=== PATIENT | male | born 1960 | race Caucasian/White ===

== ENCOUNTER 2019-04-28 22:12 | Inpatient (IN) | payer OTHER, SELFPAY ==
[2019-04-28 22:15] VITALS: BP 154/91; PULSE 99; RESP 15; TEMP 36.9; O2SAT 96; BMI 33.6
--- NOTE | 2019-04-28 22:34 | DI.CT.S_ITS ---
PROCEDURE: CT ABDOMEN PELVIS W CON INDICATIONS: severe LLQ pain, hx diverti. perf? abscess? TECHNIQUE: After the administration of intravenous contrast, 5 mm thick sections acquired from the diaphragm to the symphysis. 5 mm coronal and sagittal reformats were acquired. For radiation dose reduction, the following was used: automated exposure control, adjustment of mA and/or kV according to patient size. COMPARISON: [facility], CT, ABDOMEN/PELVIS WITH CONTRAST, 12/03/2008, 16:54. FINDINGS: Image quality: Excellent. ABDOMEN: Lung bases: Lung bases are clear. Heart size is normal. Solid organs: Liver is normal in size and enhancement. There is a water density simple appearing anterior left lateral hepatic segment 1.2 cm cyst Gallbladder is normal. Biliary system is non dilated. Pancreas enhances normally. Spleen is normal in size and enhancement. No adrenal nodules. Kidneys demonstrate normal size and enhancement, without hydronephrosis. Peritoneum and bowel: Bowel loops demonstrate normal wall thickness and caliber. No free fluid or air. Nodes and vessels: No retroperitoneal or mesenteric adenopathy by size criteria. Aorta and inferior vena cava are normal in size. Miscellaneous: No ventral hernias. PELVIS: Genitourinary: Bladder wall thickness is normal. Miscellaneous: No inguinal hernias or adenopathy. Diverticulosis is prominent involving the sigmoid colon and there is acute diverticulitis there is moderately severe, without peridiverticular abscess, at the left lower quadrant involving the proximal third of the sigmoid colon with mural thickening. Bones: No suspicious bony lesions. No vertebral body compression fractures. IMPRESSION: Acute moderately severe diverticulitis proximal third of the sigmoid colon at the left lower quadrant, without peridiverticular abscess. Additional diverticulosis is relatively prominent within this portion of the sigmoid colon. No free fluid is found. Elsewhere the study is normal for age. Dictated by: Kit Taylor M.D. on 04/29/2019 at 8:21 Approved by: Kit Taylor M.D. on 04/29/2019 at 8:24
[2019-04-28 22:44] LABS: Add Manual Diff / Slide Review NO; Basophils Absolute Auto 100 /uL (0-100); Basophils Percent Auto 0.8 % (0-2); Eosinophils Absolute Auto 200 /uL (0-450); Eosinophils Percent Auto 1.8 % (2-4); Hematocrit 42.5 % (41-53); Hemoglobin 14.6 g/dL (13.5-17.5); Lymphocytes Absolute Auto 2400 /uL (1100-4500); Lymphocytes Percent Auto 24.3 % (25-40); Mean Corpuscular HGB Conc 34.3 % (30-36); Mean Corpuscular Hemoglobin 29.5 PG (26-34); Mean Corpuscular Volume 85.9 fL (80-100); Monocytes Absolute Auto 1000 /uL (0-900); Neutrophils Absolute Auto 6200 /uL (1500-7000); Neutrophils Percent Auto 63.1 % (50-75); Platelet Count 181 X10^3/uL (150-400); Red Blood Cell Count 4.94 X10^6/uL (4.5-5.9); Red Cell Distribution Width 12.7 % (11.6-14.8); White Blood Cell Count 9.8 X10^3/uL (4.5-11.0)
[2019-04-28] MEDS: SODIUM CHLORIDE 0.9% 1,000 ML 150 ML IV (22:50)
[2019-04-28] MEDS: levoFLOXacin 500 MG/100 ML PIGGYBACK 100 MG IV (22:50)
[2019-04-28] MEDS: ONDANSETRON 4 MG/2 ML INJ IV (22:50)
[2019-04-28 22:51] LABS: Alanine Aminotransferase 46 IU/L (21-72); Albumin 4.7 g/dL (3.5-5.0); Albumin Globulin Ratio 1.6 (1.0-2.8); Alkaline Phosphatase 77 U/L (38-126); Aspartate Aminotransferase 31 IU/L (17-59); BUN Creatinine Ratio 17.5 (6-22); Bilirubin Total 0.6 mg/dL (0.2-1.3); Blood Urea Nitrogen 14 mg/dL (9-20); Calcium 9.6 mg/dL (8.4-10.2); Carbon Dioxide 24 mmol/L (22-32); Chloride 103 mmol/L (98-107); Estimated Glomerular Filt Rate > 60.0 mL/min (>60); Glucose 111 mg/dL (70-100); HEMOLYSIS < 15 (0-50); Lipase 334 U/L (23-300); Potassium 3.9 mmol/L (3.4-5.1); Sodium 137 mmol/L (137-145); Total Protein 7.7 g/dL (6.3-8.2)
[2019-04-28] MEDS: HYDROMORPHONE 1 MG INJ 0.5 MG IV (22:51)
[2019-04-28 23:16] VITALS: BP 143/76; PULSE 85; O2SAT 94
--- NOTE | 2019-04-28 23:16 | ED.ABDPAIN ---
HPI - Abdominal Pain General Chief Complaint: Abdominal Pain Stated Complaint: LOWER ABD PAIN Time Seen by Provider: 04/28/19 22:21 Source: patient and family Mode of arrival: ambulatory Limitations: no limitations History of Present Illness HPI narrative: 58-year-old male nonsmoker with history diverticulitis presents with a chief complaint of severe left lower quadrant pain gradually worsening since noon. He denies fever or shaking chills but has. He states this feels similar to prior episodes of diverticulitis but much worse in terms of the pain. His pain is worse with motion and improves with rest he can feel it all the time. He denies any change in urinary habits. MD complaint: abdominal pain Onset (ago): hour(s) Pain Consistency: constant Location: LLQ Severity: severe Quality: cramping and aching Radiation: none Migration to: no migration Relieving factors: rest Exacerbating factors: movement Context: history of similar episodes Associated symptoms: nausea Related Data Home Medications Medication Instructions Recorded Confirmed No Known Home Medications 04/29/19 04/29/19 Allergies Allergy/AdvReac Type Severity Reaction Status Date / Time No Known Drug Allergies Allergy Verified 04/28/19 22:23 Review of Systems Constitutional Denies chills, Denies fever(s), Denies lethargy and Denies weakness Eyes Denies change in vision, Denies eye discharge, Denies irritation and Denies loss of vision ENT Ears, Nose, Mouth, and Throat: Denies change in voice, Denies neck pain and Denies sore throat Cardiovascular Denies chest pain, Denies irregular heart rhythm, Denies lightheadedness, Denies palpitations, Denies dyspnea, Denies dyspnea on exertion and Denies orthopnea Respiratory Denies cough, Denies dyspnea, Denies dyspnea on exertion and Denies wheezing Gastrointestinal Gastrointestinal: Reports abdominal pain, Denies change in bowel habits, Denies diarrhea, Reports nausea and Denies vomiting Genitourinary Denies hematuria, Denies flank pain, Denies urinary incontinence and Denies urinary urgency Musculoskeletal Denies neck pain Integumentary/Breasts Denies pruritus, Denies erythema, Denies rash and Denies wounds Neurologic Denies confusion, Denies loss of vision and Denies weakness Psychiatric Denies anxiety, Denies confusion, Denies depression, Denies homicidal ideation and Denies suicidal ideation Endocrine Denies palpitations Hematologic/Lymphatic Denies easy bruising Allergic/Immunologic Denies wheezing [facility] Surgical History Status post knee surgery Status post knee surgery Status post knee surgery Family History (Updated 01/11/16 @ 00:00 by Conversion Provider) Brother Age: 65 Heart disease Father Heart disease History of heart bypass surgery Social History Smoking Status: Current every day smoker Family History Brother Age: 65 Heart disease Father Heart disease History of heart bypass surgery Social History household members: spouse Smoking Status: Current every day smoker alcohol intake: current Exam Narrative Exam Narrative: GENERAL: 50-year-old male appears stated age, obviously uncomfortable and rubbing his left lower abdomen HEAD: Atraumatic. Normocephalic. No temporal or scalp tenderness. EYES: Pupils equal round and reactive. Extraocular motions intact. No scleral icterus. No injection or drainage. ENT: Nose without bleeding, purulent drainage or septal hematoma. Throat without erythema, tonsillar hypertrophy or exudate. Uvula midline. Airway patent. NECK: Trachea midline. No JVD or lymphadenopathy. Supple, nontender, no meningeal signs. CARDIOVASCULAR: Regular rate and rhythm without murmurs, gallops, or rubs. RESPIRATORY: Clear to auscultation. Breath sounds equal bilaterally. No wheezes, rales, or rhonchi. GASTROINTESTINAL: Abdomen soft, localized peritonitis. No hepato-splenomegaly, or palpable masses. No guarding. EXTREMITIES: No clubbing, cyanosis, or edema. No joint tenderness, effusion, or edema noted. BACK: Nontender without deformity or crepitance. No flank tenderness. NEURO: AOx3. SKIN: No rash or erythema. Initial Vital Signs Initial Vital Signs: Vital Signs Temperature 98.4 F 04/28/19 22:15 Pulse Rate 99 H 04/28/19 22:15 Respiratory Rate 15 04/28/19 22:15 Blood Pressure 154/91 H 04/28/19 22:15 Pulse Oximetry 96 04/28/19 22:15 Course Orders Ordered: ED Orders 04/28/19 22:33 Complete Blood Count AUTO DIFF Stat Comprehensive Metabolic Panel Stat Lipase Stat 04/28/19 22:34 CT abdomen pelvis w con Stat 04/29/19 Basic Metabolic Panel Routine Complete Blood Count AUTO DIFF Routine GI Panel (Film Array) Routine 04/29/19 01:01 Procalcitonin Stat 04/29/19 01:07 Education, smoking cessation ONGOING 04/29/19 01:13 Consult to Dietitian, Adult Routine 04/29/19 01:14 Consult to Discharge Planning Routine 04/29/19 01:16 Consult to General Surgery Routine Heparin Sodium (Porcine) (Heparin) 5,000 unit SUBCUT BID [facility] Hydromorphone HCl (Dilaudid) 0.5 mg IV Q4HR [facility] Hydromorphone HCl (Dilaudid) 1 mg IV Q4HR [facility] Sodium Chloride (Normal Saline 0.9%) 1,000 mls @ 150 mls/hr IV CONT [facility] Last Infusion: 04/29/19 01:05 Dose: 150 mls/hr Admin: 04/28/19 22:50 Dose: 150 mls/hr Sodium Chloride (Normal Saline 0.9%) 1,000 mls @ 150 mls/hr IV CONT [facility] Naloxone HCl (Narcan) 0.2 mg IV Q2MIN PRN PRN Reason: Opiate Reversal Ondansetron HCl (Zofran) 4 mg IV Q6HR [facility] Pantoprazole Sodium (Protonix) 20 mg IV DAILY [facility] Discontinued Medications Hydromorphone HCl (Dilaudid) 0.5 mg IV NOW ONE Stop: 04/28/19 22:34 Last Admin: 04/28/19 22:51 Dose: 0.5 mg Hydromorphone HCl (Dilaudid) 1 mg IV NOW ONE Stop: 04/29/19 00:10 Last Admin: 04/29/19 00:19 Dose: 1 mg Levofloxacin (Levaquin) 500 mg in 100 mls @ 100 mls/hr IV NOW ONE Stop: 04/28/19 23:32 Last Infusion: 04/29/19 00:14 Dose: 0 mls/hr Admin: 04/28/19 22:50 Dose: 100 mls/hr Metronidazole (Flagyl) 500 mg in 100 mls @ 100 mls/hr IV NOW ONE Stop: 04/29/19 01:08 Last Infusion: 04/29/19 01:05 Dose: 100 mls/hr Admin: 04/29/19 00:19 Dose: 100 mls/hr Ondansetron HCl (Zofran) 4 mg IV NOW ONE Stop: 04/28/19 22:34 Last Admin: 04/28/19 22:50 Dose: 4 mg Vital Signs - 8 hr 04/28/19 22:15 04/28/19 23:16 04/29/19 00:00 Temperature 98.4 F Pulse Rate 99 H 85 77 Respiratory Rate 15 13 Blood Pressure 154/91 H Blood Pressure [Left Arm] 143/76 H 129/73 Pulse Oximetry 96 94 96 04/29/19 01:05 Temperature Pulse Rate 80 Respiratory Rate 16 Blood Pressure Blood Pressure [Left Arm] 119/72 Pulse Oximetry 95 MDM - Abdominal Pain Lab Data Result diagrams: 04/28/19 22:33 04/28/19 22:33 Lab Results 04/28/19 04/28/19 04/28/19 Range/Units 22:33 22:33 22:33 WBC 9.8 (4.5-11.0) X10^3/uL RBC 4.94 (4.5-5.9) X10^6/uL Hgb 14.6 (13.5-17.5) g/dL Hct 42.5 (41-53) % MCV 85.9 (80-100) fL MCH 29.5 (26-34) PG MCHC 34.3 (30-36) % RDW 12.7 (11.6-14.8) % Plt Count 181 (150-400) X10^3/uL Neut % (Auto) 63.1 (50-75) % Lymph % (Auto) 24.3 L (25-40) % [place] % (Auto) 10.0 (3-14) % Eos % (Auto) 1.8 L (2-4) % Baso % (Auto) 0.8 (0-2) % Neut # (Auto) 6200 (1055-5147) /uL Lymph # (Auto) 2400 (4642-3427) /uL [place] # (Auto) 1000 H (0-900) /uL Eos # (Auto) 200 (0-450) /uL Baso # (Auto) 100 (0-100) /uL Sodium 137 (137-145) mmol/L Potassium 3.9 (3.4-5.1) mmol/L Chloride 103 (98-107) mmol/L Carbon Dioxide 24 (22-32) mmol/L BUN 14 (9-20) mg/dL Creatinine 0.80 (0.66-1.25) mg/dL Estimated GFR > 60.0 (>60) mL/min BUN/Creatinine Ratio 17.5 (6-22) Glucose 111 H (70-100) mg/dL Calcium 9.6 (8.4-10.2) mg/dL Total Bilirubin 0.6 (0.2-1.3) mg/dL AST 31 (17-59) IU/L ALT 46 (21-72) IU/L Alkaline Phosphatase 77 (38-126) U/L Total Protein 7.7 (6.3-8.2) g/dL Albumin 4.7 (3.5-5.0) g/dL Globulin 3.0 (1.7-4.1) g/dL Albumin/Globulin Ratio 1.6 (1.0-2.8) Lipase 334 H (23-300) U/L Procalcitonin < 0.05 (<0.5) ng/mL Imaging Data CT scan - abdomen: Radiologist's impression: colitis vs. diverticulitis without abscess or perforation. Possible early phlegmon MDM Narrative Medical decision making narrative: 58-year-old male with history of diverticulitis presents with pain that reminds him of diverticulitis but is much more severe. He has localized peritonitis on exam and trouble controlling his pain with multiple doses of IV Dilaudid. CT demonstrates no perforation but possible early phlegmon. General surgery consulted but given lack of surgical findings they requested admission to the hospitalist. Patient requires admission for ongoing IV antibiotics, pain control and fluids with serial abdominal exams Discharge Plan Departure Patient Disposition: Admitted As Inpatient Clinical Impression: Diverticulitis Interventions: ED Discharge Assessment Last Done: 04/29/19 01:15 Admit Date/Time: 04/29/19 00:17 Admit Provider: Elton Pantoja
[2019-04-29] VITALS (8 sets, daily range): BP systolic 119–147; BP diastolic 69–90; PULSE 77–86; RESP 13–20; TEMP 36.6–37; O2SAT 92–96; BMI 33.6
--- NOTE | 2019-04-29 00:05 | PC.NURSE ---
Dr. Hightower at bedside.
[2019-04-29] MEDS: HYDROMORPHONE 1 MG INJ IV ×6 (00:19→20:58)
[2019-04-29] MEDS: metroNIDAZOLE 500 MG/100 ML PIGGYBACK 100 MG IV ×4 (00:19→23:34)
[2019-04-29 01:34] LABS: Procalcitonin < 0.05 ng/mL (<0.5)
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
[2019-04-29] MEDS: SODIUM CHLORIDE 0.9% 1,000 ML 150 ML IV ×4 (01:50→20:24)
--- NOTE | 2019-04-29 01:52 | PC.NURSE ---
0130- Pt admit directly from ED for abdominal pain in the LUQ--severe 09/03. See MD notes for results of abdom scan; NPO diet at this time; NS running as ordered. Pt is independent at baseline however, with severe abdominal pain a bed alarm has been placed for safety reasons. IV Dilaudid given for pain downstairs, pt says this didn't help w/ lowering the pain level. Cont SpO2 in place w/ stable sats on RA; urine sample collected via urinal.
[2019-04-29] MEDS: methylPREDNISolone 125 MG/2 ML VIAL 80 MG IV ×2 (04:39→12:11)
[2019-04-29 05:31] LABS: Add Manual Diff / Slide Review NO; Basophils Absolute Auto 0 /uL (0-100); Basophils Percent Auto 0.5 % (0-2); Eosinophils Absolute Auto 100 /uL (0-450); Eosinophils Percent Auto 1.1 % (2-4); Hematocrit 41.2 % (41-53); Hemoglobin 14.3 g/dL (13.5-17.5); Lymphocytes Absolute Auto 1900 /uL (1100-4500); Lymphocytes Percent Auto 18.9 % (25-40); Mean Corpuscular HGB Conc 34.6 % (30-36); Mean Corpuscular Volume 86.6 fL (80-100); Monocytes Absolute Auto 1000 /uL (0-900); Neutrophils Absolute Auto 6800 /uL (1500-7000); Neutrophils Percent Auto 69.5 % (50-75); Platelet Count 168 X10^3/uL (150-400); Red Blood Cell Count 4.76 X10^6/uL (4.5-5.9); Red Cell Distribution Width 12.8 % (11.6-14.8); White Blood Cell Count 9.8 X10^3/uL (4.5-11.0)
[2019-04-29 05:41] LABS: Blood Urea Nitrogen 12 mg/dL (9-20); Calcium 9.3 mg/dL (8.4-10.2); Carbon Dioxide 29 mmol/L (22-32); Chloride 101 mmol/L (98-107); Estimated Glomerular Filt Rate > 60.0 mL/min (>60); Glucose 154 mg/dL (70-100); HEMOLYSIS < 15 (0-50); Potassium 4.9 mmol/L (3.4-5.1); Sodium 137 mmol/L (137-145)
[2019-04-29 05:57] LABS: Procalcitonin < 0.05 ng/mL (<0.5)
[2019-04-29] MEDS: PANTOPRAZOLE 40 MG VIAL 20 MG IV (08:24)
[2019-04-29] MEDS: HEPARIN 5,000 UNIT/ML VIAL 5000 UNIT SUBCUT ×2 (08:24→20:26)
--- NOTE | 2019-04-29 17:33 | PM.EVENT ---
Date Patient Seen: 04/29/19 Patient seen and evaluated chart reviewed. He reports his abdominal pain has improved. He does continue to have 3/5 pain when at rest which gets worse with movement. He has no appetite. He has had no diarrhea. He has had no vomiting. Review of the final report of the CT confirms diverticulitis. The patient will continue on IV levofloxacin and Flagyl. His methylprednisolone will be discontinued. Will start a clear liquid diet tomorrow.
[2019-04-29] MEDS: levoFLOXacin 750 MG/150 ML PIGGYBACK 100 MG IV (22:32)
--- NOTE | 2019-04-29 23:16 | PC.NURSE ---
pain 3/10 without movement, 8/10 with movement. pain controlled with 1mg IV dilaudid. pt passed gas. call light in reach.
[2019-04-30] VITALS: BP 134/76; PULSE 87; RESP 18; TEMP 36.7; O2SAT 93
[2019-04-30] MEDS: ONDANSETRON 4 MG/2 ML INJ IV (00:47)
[2019-04-30] MEDS: SODIUM CHLORIDE 0.9% 1,000 ML 150 ML IV ×2 (03:10→10:30)
[2019-04-30 04:00] VITALS: BP 121/77; PULSE 71; RESP 18; TEMP 36.3; O2SAT 93
[2019-04-30 05:43] LABS: Add Manual Diff / Slide Review NO; Basophils Absolute Auto 0 /uL (0-100); Basophils Percent Auto 0.2 % (0-2); Eosinophils Absolute Auto 0 /uL (0-450); Hemoglobin 13.3 g/dL (13.5-17.5); Lymphocytes Absolute Auto 1000 /uL (1100-4500); Mean Corpuscular HGB Conc 34.1 % (30-36); Mean Corpuscular Hemoglobin 29.3 PG (26-34); Monocytes Absolute Auto 1000 /uL (0-900); Monocytes Percent Auto 8.5 % (3-14); Neutrophils Absolute Auto 9400 /uL (1500-7000); Neutrophils Percent Auto 82.3 % (50-75); Platelet Count 176 X10^3/uL (150-400); Red Blood Cell Count 4.54 X10^6/uL (4.5-5.9); Red Cell Distribution Width 12.8 % (11.6-14.8); White Blood Cell Count 11.4 X10^3/uL (4.5-11.0)
[2019-04-30 05:53] LABS: Alanine Aminotransferase 39 IU/L (21-72); Albumin Globulin Ratio 1.4 (1.0-2.8); Alkaline Phosphatase 69 U/L (38-126); Aspartate Aminotransferase 20 IU/L (17-59); BUN Creatinine Ratio 17.1 (6-22); Bilirubin Total 0.6 mg/dL (0.2-1.3); Blood Urea Nitrogen 12 mg/dL (9-20); Calcium 9.1 mg/dL (8.4-10.2); Carbon Dioxide 28 mmol/L (22-32); Chloride 104 mmol/L (98-107); Estimated Glomerular Filt Rate > 60.0 mL/min (>60); Globulin 2.8 g/dL (1.7-4.1); Glucose 135 mg/dL (70-100); HEMOLYSIS < 15 (0-50); Sodium 138 mmol/L (137-145); Total Protein 6.8 g/dL (6.3-8.2)
[2019-04-30 07:50] VITALS: BP 133/76; PULSE 73; RESP 20; TEMP 37; O2SAT 94
[2019-04-30] MEDS: metroNIDAZOLE 500 MG/100 ML PIGGYBACK 100 MG IV ×2 (07:51→16:35)
[2019-04-30] MEDS: HEPARIN 5,000 UNIT/ML VIAL 5000 UNIT SUBCUT ×2 (08:40→22:29)
[2019-04-30] MEDS: PANTOPRAZOLE 40 MG VIAL 20 MG IV (08:50)
[2019-04-30] MEDS: DEXTROSE 5%-0.45NS W/KCL 20MEQ 1,000 ML 84 MEQ IV (11:27)
[2019-04-30 11:55] VITALS: BP 135/82; PULSE 79; RESP 18; TEMP 36.9; O2SAT 96
--- NOTE | 2019-04-30 12:07 | P.PN_ITS ---
Subjective Date Patient Seen: 04/30/19 Interval history: Patient reports abdominal pain has improved. He notes the pain is 2 to 5/10 in intensity when lying flat. When he moves the pain is worse. He had some nausea last night, but no diarrhea, no vomiting. He is ready to try some liquid and advance his diet as tolerated today. Exam Vital Signs (past 8 hours): - 04/30/19 07:50 Temperature 98.6 F Pulse Rate 73 Respiratory Rate 20 Blood Pressure 133/76 Pulse Oximetry 94 Oxygen Delivery Method Room Air Oxygen Flow Rate 0 Narrative Exam Narrative: Pleasant ill-appearing male Lungs: Clear to auscultation Cardiac exam: Regular rate rhythm normal S1-S2 Abdomen: Soft, hypoactive bowel tones, tender in the left lower quad in lower mid abdominal, no rebound tenderness, no board-like rigidity, no palpable mass Extremities: No edema Objective Labs Result Diagrams: 04/30/19 05:18 04/30/19 05:18 Labs: Laboratory Results - last 24 hr 04/30/19 04/30/19 05:18 05:18 WBC 11.4 H RBC 4.54 Hgb 13.3 L Hct 39.0 L MCV 86.0 MCH 29.3 MCHC 34.1 RDW 12.8 Plt Count 176 Neut % (Auto) 82.3 H Lymph % (Auto) 9.0 L [place] % (Auto) 8.5 Eos % (Auto) 0.0 L Baso % (Auto) 0.2 Neut # (Auto) 9400 H Lymph # (Auto) 1000 L [place] # (Auto) 1000 H Eos # (Auto) 0 Baso # (Auto) 0 Sodium 138 Potassium 4.0 Chloride 104 Carbon Dioxide 28 BUN 12 Creatinine 0.70 Estimated GFR > 60.0 BUN/Creatinine Ratio 17.1 Glucose 135 H Calcium 9.1 Total Bilirubin 0.6 AST 20 ALT 39 Alkaline Phosphatase 69 Total Protein 6.8 Albumin 4.0 Globulin 2.8 Albumin/Globulin Ratio 1.4 Assessment & Plan (1) Diverticulitis: Problem details: Acute diverticulitis, present on admission abdominal pain improving. Will continue IV levofloxacin and Flagyl. Will advance diet as tolerated today. Anticipate discharge home in 1-2 day Current visit: Yes Status: Acute Quality VTE Deep Vein Thrombosis/Pulmonary Embolism Present on Admission: No
--- NOTE | 2019-04-30 12:36 | DIET.PN ---
RD consult for no appetite r/t diverticulitis Ht: 185.4cm Wt: 112kg BMI: 32.6 MNA 14 (no nutritional risk) Luis Angel 23 Diet order: 04/30 Clear Liquid Pt denies n/v/d/b symptoms, denies wt changes prior to admission, has been experiencing added stress r/t house remodel. Usual diet: B- no food, just coffee at 4am; L- goes out c coworkers for greenlandic, zambian, BBQ, pizza; D-goes out c family; sn-ice cream, candy bars, fresh fruits, whole grain bread; Fl-drinks gallon h2o/d Vomited water last night when clear diet initiated, back to NPO, slowly trying clears again today, pt has lunch tray (broth, jello, apple juice) Intervention: Recc Ensure Clear BID to support epithelial healing, stressed importance of going slow even though he is hungry. Plan: Continue clear diet until px, inflammation, and risk for bleeding subsides, then move to low-residue diet followed by slowing incorporating high fiber/high fluid diet reccs. RD will educate pt on low-residue and high fiber diet plans for discharge.
--- NOTE | 2019-04-30 16:44 | CM.DANOTE ---
Discharge Planning/Care Management DCP: assessment: initiated: Case received and discussed in Team Rounds. Pt is a 58 year old male who admitted yesterday to care of hospitalist team. Dr. Benjamin consulted. Payer: Efren Carroll PCP: Renée Collins reported that dx was acute diverticulitis and was appropriate for medical management. She notes this afternoon that he is improving and will likely be ok for d/c to home setting is he continues to improve in next day or 2. He lives with his in [place]. P: follow prn for any d/c needs that may arise. Likely home as per above when stable for same. CM Discharge Assessment Start: 04/30/19 16:43 Freq: Status: Active Protocol: Document 04/30/19 16:43 ITV (Rec: 04/30/19 16:43 ITV [id number]) Discharge Planning Assessment Advance Directives? No Advance Directives on File No History Provided By Medical Record Prior Living Arrangements House Household Members spouse Independent with ADL's Yes Is patient alert and oriented? Yes Document 04/30/19 16:44 ITV (Rec: 04/30/19 16:44 ITV [id number]) Discharge Planning Assessment Advance Directives? No Advance Directives on File No History Provided By Medical Record Prior Living Arrangements House Household Members spouse Is patient alert and oriented? Yes
[2019-04-30 20:01] VITALS: BP 129/90; PULSE 75; RESP 17; TEMP 36.8; O2SAT 96
[2019-04-30] MEDS: levoFLOXacin 750 MG/150 ML PIGGYBACK 100 MG IV (22:29)
[2019-04-30 23:00] VITALS: BP 143/79; PULSE 70; RESP 16; TEMP 37.2; O2SAT 96
[2019-05-01] MEDS: metroNIDAZOLE 500 MG/100 ML PIGGYBACK 100 MG IV ×3 (00:22→16:49)
[2019-05-01] MEDS: DEXTROSE 5%-0.45NS W/KCL 20MEQ 1,000 ML 84 MEQ IV ×2 (03:29→16:49)
[2019-05-01 04:51] VITALS: BP 143/76; PULSE 63; RESP 16; TEMP 36.7; O2SAT 100
--- NOTE | 2019-05-01 05:50 | PC.NURSE ---
Denies any nausea & abdominal pain all shift. Reports passing some gas, slept most of the shift. Will cont. POC & monitor.
[2019-05-01 08:00] VITALS: BP 132/82; PULSE 63; RESP 18; O2SAT 98
[2019-05-01 08:30] VITALS: TEMP 36.8
--- NOTE | 2019-05-01 08:55 | PM.PN.1 ---
Subjective Date Patient Seen: 05/01/19 Time Patient Seen: 08:55 Interval history: He is seen today to follow-up his sigmoid diverticulitis. He says he has begun tolerating the clear liquid diet, after initially vomiting with the his 1st intake the day before yesterday. Exam Vital Signs (past 8 hours): - 05/01/19 04:51 05/01/19 08:00 05/01/19 08:30 Temperature 98.1 F 98.2 F Pulse Rate 63 63 Respiratory Rate 16 18 Blood Pressure 143/76 H 132/82 Pulse Oximetry 100 98 Oxygen Delivery Method Room Air Oxygen Flow Rate 0 Narrative Exam Narrative: Alert and oriented x3. No apparent distress. Heart is regular rate and rhythm without murmur. Lungs are clear to auscultation bilaterally. Abdomen is soft, bowel sounds positive, no organomegaly, with exquisite tenderness present in the left lower quadrant. Extremities have no ankle edema. Objective Labs Result Diagrams: 04/30/19 05:18 04/30/19 05:18 Assessment & Plan Assessment & Plan narrative: Diverticulitis -repeat CT today. Discussed with General surgery. -continue IV Flagyl and levofloxacin -anticipate discharge home on oral antibiotics in 1-2 days. Quality VTE Deep Vein Thrombosis/Pulmonary Embolism Present on Admission: No
--- NOTE | 2019-05-01 09:34 | DI.CT.S_ITS ---
PROCEDURE: CT ABDOMEN PELVIS W CON INDICATIONS: Diverticulitis TECHNIQUE: After the administration of oral and intravenous contrast, 5 mm thick sections acquired from the diaphragms to the symphysis. 5 mm thick coronal and sagittal reformats were performed. For radiation dose reduction, the following was used: automated exposure control, adjustment of mA and/or kV according to patient size. COMPARISON: [facility], CT, CT ABDOMEN PELVIS W CON, 04/28/2019, 22:59. [facility], CT, ABDOMEN/PELVIS WITH CONTRAST, 12/03/2008, 16:54. FINDINGS: Image quality: Excellent. ABDOMEN: Lung bases: Along the left oblique fissure laterally, there is a nodule seen that measures 17 x 10 mm. Calcification is seen associated with this nodule, as on series 2 images 4 and 5. This is off of the [id number] of the prior CT examinations. Mild dependent atelectasis can be seen. Heart size is normal. Solid organs: Liver is normal in size and enhancement. There is a 13 mm nonenhancing cyst is seen involving the anterior aspect of the left liver. Incidental note is made of focal fatty infiltration adjacent to the falciform ligament, which is not regarded to be pathologic. Gallbladder wall is not thickened. Biliary system is non-dilated. Pancreas enhances normally. Spleen is normal in size and enhancement. No adrenal nodules. Kidneys are normal in size and enhancement, without hydronephrosis. Peritoneum and bowel: There is again seen focal wall thickening with surrounding inflammatory change involving the proximal sigmoid colon. The amount of wall thickening and inflammatory change is improved compared to the prior examination. Prominent diverticulosis is seen within this region. No free air is detected. No loculated fluid collections are seen. No other areas of focal bowel wall thickening are seen. No dilated loops of small bowel are seen. Nodes and vessels: No retroperitoneal or mesenteric adenopathy. Aorta and inferior vena cava are normal in caliber. Miscellaneous: No ventral hernias. PELVIS: Genitourinary: Bladder wall thickness is normal. Miscellaneous: No inguinal adenopathy. Bilateral fat containing inguinal hernias are seen. Bones: No suspicious bony lesions. No vertebral body compression fractures. IMPRESSION: Improving sigmoid diverticulitis. No abscess is seen. There is a 17 mm nodule seen along the left oblique fissure laterally. Differential diagnosis includes neoplasm and prior granulomatous exposure. Please consider a dedicated PET/CT for further evaluation. Incidental note is made of: Liver cyst Bilateral fat containing inguinal hernias Note: Findings and recommendations relayed to Dr. Polanco via office staff, Mellissa, at 10:45 AM [place] time on May 01, 2019. Dr. Polanco will call back if there are any questions. Dictated by: Jose G Kenny M.D. on 05/01/2019 at 9:34 Approved by: Jose G Kenny M.D. on 05/01/2019 at 9:47
--- NOTE | 2019-05-01 09:47 | PC.NURSE ---
Addendum entered by Elena Ugalde R.N. 05/01/19 10:41: pt left floor for abd CT at 0945 and saline locked. Arrived back to room at 1010, fluids infusing and pt resting in bed. Declined breakfast and will ask for a snack if needed. Original Note: AM Shift pt AO and receptive to care. Reporting feeling tired due to lack of sleep and fighting acid reflux, but feels steady on his feet and denying lightheadedness/dizziness. Reporting 3/10 abdominal pain. No nausea currently, however previous shifts have reported nausea and vomiting. Urgent order for abdominal CT scan so pt held clear breakfast to drink prep. VS stable. Infusing D5 1/2 NS with 20meq K at 84/hr. Up IND in room and voiding ample. Bowel tones hypoactive and pt states he isn't passing a lot of gas.
[2019-05-01] MEDS: HEPARIN 5,000 UNIT/ML VIAL 5000 UNIT SUBCUT ×2 (10:13→21:24)
--- NOTE | 2019-05-01 11:50 | DIET.PN ---
RD f/u diverticulitis Ht: 185.4cm Wt: 112kg BMI: 32.6 MNA 14 (no nutritional risk) Luis Angel 23 Diet order: 04/30 Clear Liquid Pt denies n/v/d/b symptoms, tolerating clears. Intervention: RD educated pt on continuing low-residue diet for one week post discharge followed by incorporating higher fiber foods as tolerated c eventual goal of high fiber/high fluid diet. Gave pt low-residue diet and high-fiber diet handouts. Pt states will follow reccs. Plan: Recc advance to low-residue diet as appropriate, consider starting c mashed potatoes c broth or cream of wheat.
[2019-05-01 12:20] VITALS: BP 149/84; PULSE 68; RESP 18; TEMP 36.7; O2SAT 96
--- NOTE | 2019-05-01 14:35 | PC.NURSE ---
Stool sample Hospitalist ordered stool sample on 04/29. pt has yet to have a BM. KNIFEMAN made aware of order and specimen container in [place].
[2019-05-01 19:48] VITALS: BP 146/87; PULSE 77; RESP 16; TEMP 37.1; O2SAT 96
[2019-05-01] MEDS: levoFLOXacin 750 MG/150 ML PIGGYBACK 100 MG IV (23:07)
[2019-05-01 23:35] VITALS: BP 150/87; PULSE 69; RESP 16; TEMP 36.5; O2SAT 98
[2019-05-02] MEDS: metroNIDAZOLE 500 MG/100 ML PIGGYBACK 100 MG IV ×2 (00:32→07:32)
[2019-05-02 03:20] VITALS: BP 133/77; PULSE 69; RESP 16; TEMP 36.6; O2SAT 96
[2019-05-02] MEDS: DEXTROSE 5%-0.45NS W/KCL 20MEQ 1,000 ML 84 MEQ IV (07:32)
[2019-05-02 08:00] VITALS: BP 132/74; PULSE 60; RESP 18; TEMP 36.6; O2SAT 97
--- NOTE | 2019-05-02 08:25 | PC.NURSE ---
Addendum entered by Yaar Singh R.N. 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 Addendum entered by Yara Singh R.N. 05/02/19 11:45: GI - assisted to shower, pt had med-large softly formed brown stool. Addendum entered by Yara Singh R.N. 05/02/19 11:45: GI - pt miguel angel gen breakfast diet this am, denies nausea or abd pain. Original Note: AM NOTE - alert, denies pain, states only occassional abd discomfort, no nausea, hypo bt, greater l than r, ra 96%, hr 62, in this am and pt will adv to gen diet for breakfast. Per MD, no laxatives will be needed as expect bowel function to return w/o stimulus.
[2019-05-02 08:34] LABS: Add Manual Diff / Slide Review NO; Basophils Absolute Auto 0 /uL (0-100); Basophils Percent Auto 0.4 % (0-2); Eosinophils Absolute Auto 100 /uL (0-450); Eosinophils Percent Auto 1.9 % (2-4); Hematocrit 44.7 % (41-53); Hemoglobin 15.2 g/dL (13.5-17.5); Lymphocytes Absolute Auto 1700 /uL (1100-4500); Lymphocytes Percent Auto 30.7 % (25-40); Mean Corpuscular HGB Conc 33.9 % (30-36); Mean Corpuscular Hemoglobin 29.2 PG (26-34); Mean Corpuscular Volume 86.1 fL (80-100); Monocytes Absolute Auto 600 /uL (0-900); Monocytes Percent Auto 10.4 % (3-14); Neutrophils Absolute Auto 3200 /uL (1500-7000); Neutrophils Percent Auto 56.6 % (50-75); Platelet Count 201 X10^3/uL (150-400); Red Blood Cell Count 5.19 X10^6/uL (4.5-5.9); Red Cell Distribution Width 12.4 % (11.6-14.8); White Blood Cell Count 5.6 X10^3/uL (4.5-11.0)
[2019-05-02 08:43] LABS: Blood Urea Nitrogen 12 mg/dL (9-20); Calcium 9.7 mg/dL (8.4-10.2); Carbon Dioxide 31 mmol/L (22-32); Chloride 102 mmol/L (98-107); Estimated Glomerular Filt Rate > 60.0 mL/min (>60); Glucose 132 mg/dL (70-100); HEMOLYSIS < 15 (0-50); Potassium 4.9 mmol/L (3.4-5.1); Sodium 140 mmol/L (137-145)
[2019-05-02] MEDS: HEPARIN 5,000 UNIT/ML VIAL 5000 UNIT SUBCUT (09:36)
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
--- NOTE | 2019-05-03 12:56 | CM.DPC ---
DCP: continued: late entry for 05/02. Case received again yesterday and discussed in Team Rounds. Reviewed hand off note from John Land for 05/01: plan was for a d/c to home on Sunday 04/01 and no d/c needs identified. Pt did d/c to home as planned.
== END 2019-05-02 14:10 | disposition home or self-care (01) | DRG 392 ==
LOC: ED 22:21 → AC 04-29 00:18
PROVIDERS: Internal Medicine; Admitting Provider Nurse Practitioner Adult Health; Emergency Provider Emergency Medicine; Family Provider Family Medicine; PCP Family Medicine; Visit Provider Nurse Practitioner Adult Health
DX: K57.32 Diverticulitis of large intestine without perforation or abscess without bleeding (principal); F17.210 Nicotine dependence, cigarettes, uncomplicated
CPT/HCPCS: 36415; 36591; 74177; 80048; 80053; 83690; 84145; 85025; 94762; 96365; 96366; 96367; 96375; 96376; 99283; 99285; 99406; C9113; J1170; J1644; J1956; J2405; J2930; Q9967

== ENCOUNTER 2019-12-14 10:41 | Emergency (ER) | payer OTHER, SELFPAY ==
[2019-04-29 01:26] VITALS: BMI 33.6
--- NOTE | 2019-12-14 10:52 | ED_ITS ---
HPI - Abdominal Pain General Chief Complaint: Abdominal Pain Stated Complaint: possible pancreatitis attack a lot of pain Time Seen by Provider: 12/14/19 10:51 Source: patient and old records reviewed Mode of arrival: Ambulatory Limitations: no limitations History of Present Illness HPI narrative: This is a 59-year-old male comes to the emergency department with complaint of right lower abdominal pain. Patient states it started suddenly about 45 minutes just prior to arrival. He states it does not radiate to his back, does not have any pain in his flank. He states he is feeling sweaty particularly but started. He does feel nauseated. He has not vomited. Had normal bowel movement and urination this morning. His last urination was at 9:30 a.m.. He has not had any syncope. He does not feel lightheaded. Patient denies any radiation of pain elsewhere. He has not had similar pain in the past. Does have a history of diverticulitis denies any other past medical issues, he has had knee and elbow surgery. He denies allergies to medication. Smokes 1 or 2 cigarettes daily, denies alcohol or illicit. He follows with Renée Ibrahim is his primary care. Related Data Previous Rx's Medication Instructions Recorded meloxicam [Mobic] 7.5 mg PO BID #14 tab 12/14/19 ondansetron HCl [Zofran] 4 mg PO Q6H PRN #10 tab 12/14/19 oxycodone-acetaminophen [Percocet] 1 tab PO Q6H PRN #10 tab 12/14/19 tamsulosin [Flomax] 0.4 mg PO DAILY #7 cap 12/14/19 Allergies Allergy/AdvReac Type Severity Reaction Status Date / Time No Known Drug Allergies Allergy Verified 05/06/19 10:54 Review of Systems Review of Systems ROS Unobtainable: All systems reviewed & are unremarkable except as noted in HPI and below Constitutional Constitutional: Denies chills, Reports excessive sweating and Denies fever(s) Cardiovascular Cardiovascular: Denies chest pain and Denies dyspnea Respiratory Respiratory: Denies dyspnea Endocrine Endocrine: Reports excessive sweating Patient History Medical History Cervical pain (Acute) Diverticulosis (Acute) Low back pain (Acute) Surgical History Status post knee surgery Status post knee surgery Status post knee surgery Social History household members: spouse Smoking Status: Current every day smoker alcohol intake: current Smoking Status: Current every day smoker alcohol intake frequency: holidays/special occasions only Substance Use Type: does not use Exam Narrative Exam Narrative: GENERAL: Alert and oriented x three, well-nourished, well- appearing male in moderate distress HEENT: Head normocephalic, atraumatic, EOMI, pupils reactive, face symmetric, moist mucous membranes NECK: Supple, full range of motion CARDIOVASCULAR: Regular rate and rhythm without murmurs, rubs or gallops. RESPIRATORY: Breath sounds equal bilaterally, no wheezes rales or rhonchi. ABDOMEN: Soft, positive right lower quadrant tenderness but only mildly worsened with palpation. Normoactive bowel sounds all 4 quadrants. No guarding or rebound, rigidity, no mass. No hernia noted. : No CVA tenderness EXTREMITIES: Normal range of motion, no clubbing or edema. Neurovascularly intact NEUROLOGICAL: Cranial nerves II through XII grossly intact. Moving all extremities SKIN: Warm, dry, no petechiae, no rashes or lesions. No ecchymosis or skin changes. Initial Vital Signs Initial Vital Signs: Vital Signs Temperature 98.0 F 12/14/19 10:53 Pulse Rate 77 12/14/19 10:53 Respiratory Rate 18 12/14/19 10:53 Blood Pressure 141/68 H 12/14/19 10:53 Pulse Oximetry 100 12/14/19 10:53 Course Orders Ordered: ED Orders 12/14/19 10:55 EKG-12 Lead Stat 12/14/19 11:04 Complete Blood Count AUTO DIFF Stat Comprehensive Metabolic Panel Stat Lipase Stat Partial Thromboplastin Time Stat Prothrombin Time INR Stat 12/14/19 11:07 CT abdomen pelvis w con Stat 12/14/19 12:05 Urine Culture Stat Urine Microscopic Stat Discontinued Medications Sodium Chloride (Normal Saline 0.9%) 1,000 mls @ 1,000 mls/hr IV BOLUS ONE Stop: 12/14/19 12:05 Last Infusion: 12/14/19 12:41 Dose: 0 mls/hr Documented by: Admin: 12/14/19 11:11 Dose: 1,000 mls/hr Documented by: NEELAM Lidocaine HCl 7.8 ml/ Sodium (Chloride) 57.8 mls @ 346.8 mls/hr IV NOW ONE Stop: 12/14/19 11:45 Last Infusion: 12/14/19 12:16 Dose: 0 mls/hr Documented by: Admin: 12/14/19 12:05 Dose: 346.8 mls/hr Documented by: WILLIAN Ketorolac Tromethamine (Toradol) 30 mg IV NOW ONE Stop: 12/14/19 11:07 Last Admin: 12/14/19 11:11 Dose: 30 mg Documented by: NEELAM Metoclopramide HCl (Reglan) 10 mg IV NOW ONE Stop: 12/14/19 12:08 Last Admin: 12/14/19 12:10 Dose: 10 mg Documented by: WILLIAN Ondansetron HCl (Zofran) 4 mg IV NOW ONE Stop: 12/14/19 11:07 Last Admin: 12/14/19 11:12 Dose: 4 mg Documented by: NEELAM Tamsulosin HCl (Flomax) 0.4 mg PO NOW ONE Stop: 12/14/19 13:15 Last Admin: 12/14/19 13:28 Dose: 0.4 mg Documented by: WILLIAN Vital Signs Vital signs: Vital Signs - 8 hr 12/14/19 10:53 12/14/19 12:00 Temperature 98.0 F Pulse Rate 77 74 Respiratory Rate 18 12 Blood Pressure 141/68 H Pulse Oximetry 100 98 MDM - Abdominal Pain Lab Data Attestation: I reviewed the patient's lab results. Result diagrams: 12/14/19 11:04 12/14/19 11:04 Labs: Lab Results 12/14/19 12/14/19 12/14/19 Range/Units 11:04 11:04 11:04 WBC 7.2 (4.5-11.0) X10^3/uL RBC 4.92 (4.5-5.9) X10^6/uL Hgb 14.8 (13.5-17.5) g/dL Hct 42.3 (41-53) % MCV 85.9 (80-100) fL MCH 30.1 (26-34) PG MCHC 35.0 (30-36) % RDW 12.8 (11.6-14.8) % Plt Count 174 (150-400) X10^3/uL Neut % (Auto) 55.7 (50-75) % Lymph % (Auto) 34.5 (25-40) % [place] % (Auto) 7.8 (3-14) % Eos % (Auto) 1.4 L (2-4) % Baso % (Auto) 0.6 (0-2) % Neut # (Auto) 4000 (4985-8510) /uL Lymph # (Auto) 2500 (1455-0287) /uL [place] # (Auto) 600 (0-900) /uL Eos # (Auto) 100 (0-450) /uL Baso # (Auto) 0 (0-100) /uL PT 11.4 (10.1-12.7) SECONDS INR 1.0 (0.9-1.3) APTT 27 (26.4-36.2) SECONDS Sodium 136 L (137-145) mmol/L Potassium 4.2 (3.4-5.1) mmol/L Chloride 103 (98-107) mmol/L Carbon Dioxide 21 L (22-32) mmol/L BUN 15 (9-20) mg/dL Creatinine 0.80 (0.66-1.25) mg/dL Estimated GFR > 60.0 (>60) mL/min BUN/Creatinine Ratio 18.8 (6-22) Glucose 144 H (70-100) mg/dL Calcium 9.9 (8.4-10.2) mg/dL Total Bilirubin 0.9 (0.2-1.3) mg/dL AST 37 (17-59) IU/L ALT 35 (<50) IU/L Alkaline Phosphatase 62 (38-126) U/L Total Protein 8.1 (6.3-8.2) g/dL Albumin 4.8 (3.5-5.0) g/dL Globulin 3.3 (1.7-4.1) g/dL Albumin/Globulin Ratio 1.5 (1.0-2.8) Lipase 130 (23-300) U/L Urine RBC (0-5/HPF) Urine WBC (0-5/HPF) Ur Squamous Epith Cells (0-5/HPF) Amorphous Sediment Urine Bacteria (None) Urine Mucus (Negative) Ur Culture Indicated? 12/14/19 Range/Units 12:05 WBC (4.5-11.0) X10^3/uL RBC (4.5-5.9) X10^6/uL Hgb (13.5-17.5) g/dL Hct (41-53) % MCV (80-100) fL MCH (26-34) PG MCHC (30-36) % RDW (11.6-14.8) % Plt Count (150-400) X10^3/uL Neut % (Auto) (50-75) % Lymph % (Auto) (25-40) % [place] % (Auto) (3-14) % Eos % (Auto) (2-4) % Baso % (Auto) (0-2) % Neut # (Auto) (9424-3940) /uL Lymph # (Auto) (9007-3649) /uL [place] # (Auto) (0-900) /uL Eos # (Auto) (0-450) /uL Baso # (Auto) (0-100) /uL PT (10.1-12.7) SECONDS INR (0.9-1.3) APTT (26.4-36.2) SECONDS Sodium (137-145) mmol/L Potassium (3.4-5.1) mmol/L Chloride (98-107) mmol/L Carbon Dioxide (22-32) mmol/L BUN (9-20) mg/dL Creatinine (0.66-1.25) mg/dL Estimated GFR (>60) mL/min BUN/Creatinine Ratio (6-22) Glucose (70-100) mg/dL Calcium (8.4-10.2) mg/dL Total Bilirubin (0.2-1.3) mg/dL AST (17-59) IU/L ALT (<50) IU/L Alkaline Phosphatase (38-126) U/L Total Protein (6.3-8.2) g/dL Albumin (3.5-5.0) g/dL Globulin (1.7-4.1) g/dL Albumin/Globulin Ratio (1.0-2.8) Lipase (23-300) U/L Urine RBC 30-100/hpf H (0-5/HPF) Urine WBC 10-30/hpf H (0-5/HPF) Ur Squamous Epith Cells 0-1 /hpf (0-5/HPF) Amorphous Sediment 1+ Urine Bacteria Occasional (0-1) (None) Urine Mucus 2+ H (Negative) Ur Culture Indicated? Specimen cultured Point of care testing: Urine Dip Bedside Urine Glucose Negative Bedside Urine Bilirubin - Negative Bedside Urine Ketone ++ 40 Urine Specific [place] 1.020 Bedside Urine Occult Blood +++ Bedside Urine pH 6.0 Bedside Urine Protein +/- 15 Bedside Urine Urobilinogen - Negative Bedside Urine Nitrite - Negative Bedside Urine Leukocytes + [address] scan - abdomen/pelvis: Radiologist's Impression: Matthew Gonzalez 59 M [address] [address] [address] Scan Report Signed Patient: Matthew Gonzalez AMR#: [id number] : 1960Acct:[id number] Age/Sex: 59 / MDate of Service: 12/14/19 Loc: ED Accession Number: [id number] Procedure: CT abdomen pelvis w con Ordering Provider: Cristina Rajput D.O. PROCEDURE: CT ABDOMEN PELVIS W CON INDICATIONS: RIGHT UPPER pain X 3 HOURS, stone vs appy, vs right sided diverticulitis TECHNIQUE: After the administration of intravenous contrast, 5 mm thick sections acquired from the diaphragm to the symphysis. 5 mm coronal and sagittal reformats were acquired. For radiation dose reduction, the following was used: automated exposure control, adjustment of mA and/or kV according to patient size. COMPARISON: [facility], CT, CT ABDOMEN PELVIS W CON, 05/01/2019, 9:42. [facility], CT, CT ABDOMEN PELVIS W CON, 04/28/2019, 22:59. [facility], CT, ABDOMEN/PELVIS WITH CONTRAST, 12/03/2008, 16:54. FINDINGS: Image quality: Excellent. ABDOMEN: Lung bases: Lung bases are clear. Heart size is normal. Atherosclerotic calcifications are noted in the visualized left coronary vasculature. Solid organs: Liver is normal in size and enhancement. Focal fatty infiltration of the liver adjacent to the falciform ligament. 1.3 cm cyst noted in the left lobe of the liver. 0.8 cm cyst versus hemangioma noted in the right lobe of the liver. Gallbladder is within normal limits. Biliary system is non dilated. Pancreas enhances normally. Spleen is normal in size and enhancement. A 1.3 cm right adrenal nodule is noted which has density measurements of 13 Hounsfield units. There is a 1 mm stone in the right UVJ causing mild right-sided hydroureteronephrosis. 2 mm nonobstructing stone noted in the midpole of the right kidney. Peritoneum and bowel: Bowel loops demonstrate normal wall thickness diverticula scattered throughout the colon most numerous in the sigmoid colon. No free fluid or and caliber. Multiple air. The appendix is normal. Nodes and vessels: No retroperitoneal or mesenteric adenopathy by size criteria. Aorta and inferior vena cava are normal in size. Scattered atherosclerotic calcifications involving the abdominal and pelvic vasculature. Miscellaneous: No ventral hernias. PELVIS: Genitourinary: Bladder wall thickness is normal. Miscellaneous: No inguinal adenopathy. Small bilateral fat-containing inguinal hernias are stable. Bones: No suspicious bony lesions. Chronic appearing L4 compression deformity noted. No acute vertebral body compression fractures. Spine degenerative disc disease and facet arthropathy. IMPRESSION: 1. 1 mm stone in the right UVJ causing mild right-sided hydroureteronephrosis. 2. 2 mm nonobstructing right renal cortical stone. 3. No evidence of appendicitis. 4. Colonic diverticulosis without evidence of diverticulitis. 5. 1.3 cm indeterminate right adrenal nodule. Recommend CT or MR scan (adrenal protocol) for definitive characterization. Dictated by: Mandy Tomas MD, PhD on 12/14/2019 at 12:00 Approved by: Mandy Tomas MD, PhD on 12/14/2019 at 12:09 ECG Data Attestation: I personally reviewed and interpreted this ECG as follows: Prior ECG tracings: not available for review Interpretation: Sinus rhythm rate of 74 CT 156 QRS of 90 and QTC of 393. No ST elevation or depression appreciated MDM Narrative Medical decision making narrative: Recheck after medications patient has i mprovement but intermittently does have some pain he feels like it's more well controlled at this time. He does have a 1 mm stone, normal renal function with mild right-sided hydro ureteral nephrosis. There's a 2 mm nonobstructing right renal stone. No evidence of appendicitis. Diverticulosis without diverticulitis. And a 1.3 cm indeterminate right adrenal nodule. Urine shows some leuks but no nitrates. It was sent for culture. He has not been having any infectious type symptoms he does not have an elevated white count and he has been afebrile. Other abdominal labs are normal. Discharge Plan Departure Patient Disposition: Home Clinical Impression: Kidney stone on right side, Adrenal nodule Discharge Date/Time: 12/14/19 13:55 Instructions: DI for Kidney Stones Activity Restrictions/Additional Instructions: Follow up with urology, you may follow through [facility] stone clinic or if you prefer a closer option one is included below. You also drop your oxygen when you fall asleep, I would recommend that you talk to your physician about getting a sleep study to evaluate for obstructive sleep apnea. Take flomax once daily until gone. You may take meloxicam 1 tablet every 12 hours as needed. Was sent to [place]. Take pain medication as prescribed this medication can make you sleepy do not drive, perform hazardous activities or make any major decisions while taking it. You may take antinausea medication 1 tablet every 6 hours as needed for nausea and or vomiting. Return for fevers greater than 100.4F, new or worsening abdominal, flank pain, persistent vomiting, lightheadedness, passing out, inability urinate or other new or concerning symptoms. Prescriptions: New tamsulosin [Flomax] 0.4 mg capsule 0.4 mg PO DAILY Qty: 7 RF: 0 oxycodone-acetaminophen [Percocet] 5-325 mg tablet 1 tab PO Q6H PRN (Reason: pain) Qty: 10 RF: 0 ondansetron HCl [Zofran] 4 mg tablet 4 mg PO Q6H PRN (Reason: nausea and vomiting) Qty: 10 RF: 0 meloxicam [Mobic] 7.5 mg tablet 7.5 mg PO BID Qty: 14 RF: 0 Referrals: Renée Ibrahim DO [Primary Care Provider] -
[2019-12-14 10:53] VITALS: BP 141/68; PULSE 77; RESP 18; TEMP 36.7; O2SAT 100
--- NOTE | 2019-12-14 11:07 | DI.CT.S_ITS ---
PROCEDURE: CT ABDOMEN PELVIS W CON INDICATIONS: RIGHT UPPER pain X 3 HOURS, stone vs appy, vs right sided diverticulitis TECHNIQUE: After the administration of intravenous contrast, 5 mm thick sections acquired from the diaphragm to the symphysis. 5 mm coronal and sagittal reformats were acquired. For radiation dose reduction, the following was used: automated exposure control, adjustment of mA and/or kV according to patient size. COMPARISON: [facility], CT, CT ABDOMEN PELVIS W CON, 05/01/2019, 9:42. [facility], CT, CT ABDOMEN PELVIS W CON, 04/28/2019, 22:59. [facility], CT, ABDOMEN/PELVIS WITH CONTRAST, 12/03/2008, 16:54. FINDINGS: Image quality: Excellent. ABDOMEN: Lung bases: Lung bases are clear. Heart size is normal. Atherosclerotic calcifications are noted in the visualized left coronary vasculature. Solid organs: Liver is normal in size and enhancement. Focal fatty infiltration of the liver adjacent to the falciform ligament. 1.3 cm cyst noted in the left lobe of the liver. 0.8 cm cyst versus hemangioma noted in the right lobe of the liver. Gallbladder is within normal limits. Biliary system is non dilated. Pancreas enhances normally. Spleen is normal in size and enhancement. A 1.3 cm right adrenal nodule is noted which has density measurements of 13 Hounsfield units. There is a 1 mm stone in the right UVJ causing mild right-sided hydroureteronephrosis. 2 mm nonobstructing stone noted in the midpole of the right kidney. Peritoneum and bowel: Bowel loops demonstrate normal wall thickness diverticula scattered throughout the colon most numerous in the sigmoid colon. No free fluid or and caliber. Multiple air. The appendix is normal. Nodes and vessels: No retroperitoneal or mesenteric adenopathy by size criteria. Aorta and inferior vena cava are normal in size. Scattered atherosclerotic calcifications involving the abdominal and pelvic vasculature. Miscellaneous: No ventral hernias. PELVIS: Genitourinary: Bladder wall thickness is normal. Miscellaneous: No inguinal adenopathy. Small bilateral fat-containing inguinal hernias are stable. Bones: No suspicious bony lesions. Chronic appearing L4 compression deformity noted. No acute vertebral body compression fractures. Spine degenerative disc disease and facet arthropathy. IMPRESSION: 1. 1 mm stone in the right UVJ causing mild right-sided hydroureteronephrosis. 2. 2 mm nonobstructing right renal cortical stone. 3. No evidence of appendicitis. 4. Colonic diverticulosis without evidence of diverticulitis. 5. 1.3 cm indeterminate right adrenal nodule. Recommend CT or MR scan (adrenal protocol) for definitive characterization. Dictated by: Mandy Tomas MD, PhD on 12/14/2019 at 12:00 Approved by: Mandy Tomas MD, PhD on 12/14/2019 at 12:09
[2019-12-14] MEDS: SODIUM CHLORIDE 0.9% 1,000 ML 1000 ML IV (11:11)
[2019-12-14] MEDS: KETOROLAC 60 MG/2 ML VIAL 30 MG IV (11:11)
[2019-12-14 11:12] LABS: Add Manual Diff / Slide Review NO; Basophils Absolute Auto 0 /uL (0-100); Basophils Percent Auto 0.6 % (0-2); Eosinophils Absolute Auto 100 /uL (0-450); Eosinophils Percent Auto 1.4 % (2-4); Hematocrit 42.3 % (41-53); Hemoglobin 14.8 g/dL (13.5-17.5); Lymphocytes Absolute Auto 2500 /uL (1100-4500); Lymphocytes Percent Auto 34.5 % (25-40); Mean Corpuscular Hemoglobin 30.1 PG (26-34); Mean Corpuscular Volume 85.9 fL (80-100); Monocytes Absolute Auto 600 /uL (0-900); Monocytes Percent Auto 7.8 % (3-14); Neutrophils Absolute Auto 4000 /uL (1500-7000); Neutrophils Percent Auto 55.7 % (50-75); Platelet Count 174 X10^3/uL (150-400); Red Blood Cell Count 4.92 X10^6/uL (4.5-5.9); Red Cell Distribution Width 12.8 % (11.6-14.8); White Blood Cell Count 7.2 X10^3/uL (4.5-11.0)
[2019-12-14] MEDS: ONDANSETRON 4 MG/2 ML INJ IV (11:12)
[2019-12-14 11:20] LABS: Prothrombin Time 11.4 SECONDS (10.1-12.7)
[2019-12-14 11:23] LABS: PTT Partial Thromboplastin Tim 27 SECONDS (26.4-36.2)
[2019-12-14 11:27] LABS: Alanine Aminotransferase 35 IU/L (<50); Albumin 4.8 g/dL (3.5-5.0); Albumin Globulin Ratio 1.5 (1.0-2.8); Alkaline Phosphatase 62 U/L (38-126); Aspartate Aminotransferase 37 IU/L (17-59); BUN Creatinine Ratio 18.8 (6-22); Bilirubin Total 0.9 mg/dL (0.2-1.3); Blood Urea Nitrogen 15 mg/dL (9-20); Calcium 9.9 mg/dL (8.4-10.2); Carbon Dioxide 21 mmol/L (22-32); Chloride 103 mmol/L (98-107); Estimated Glomerular Filt Rate > 60.0 mL/min (>60); Globulin 3.3 g/dL (1.7-4.1); Glucose 144 mg/dL (70-100); HEMOLYSIS < 15 (0-50); Lipase 130 U/L (23-300); Potassium 4.2 mmol/L (3.4-5.1); Sodium 136 mmol/L (137-145); Total Protein 8.1 g/dL (6.3-8.2)
[2019-12-14 12:00] VITALS: PULSE 74; RESP 12; O2SAT 98
[2019-12-14] MEDS: LIDOCAINE 2% 7.8 ML in SODIUM CHLORIDE 0.9% 50 ML 346.8 ML IV (12:05)
[2019-12-14] MEDS: METOCLOPRAMIDE 10 MG/2 ML INJ IV (12:10)
[2019-12-14 12:51] LABS: Amorphous Sediment Urine 1+; Bacteria Urine Occasional (0-1); Culture Indicated Urine Specimen Cultured; Mucus Urine 2+ (Negative); RBC Urine 30-100/HPF (0-5/HPF); Squamous Epithelial Cell Urine 0-1 /HPF (0-5/HPF); WBC Urine 10-30/HPF (0-5/HPF)
[2019-12-14] MEDS: TAMSULOSIN 0.4 MG CAPSULE PO (13:28)
== END 2019-12-14 13:55 | disposition home or self-care (01) ==
PROVIDERS: Emergency Provider Emergency Medicine; Family Provider Family Medicine; PCP Family Medicine
DX: N20.0 Calculus of kidney (principal); E27.8 Other specified disorders of adrenal gland; K57.90 Diverticulosis of intestine, part unspecified, without perforation or abscess without bleeding
CPT/HCPCS: 36415; 74177; 80053; 81003; 81015; 83690; 85025; 85610; 85730; 87086; 93005; 93010; 96361; 96374; 96375; 99284; 99285; J1885; J2405; J2765; Q9967

== ENCOUNTER → 2020-09-14 09:48 | Outpatient (CLI) | payer OTHER, SELFPAY ==
[2019-04-29 01:26] VITALS: BMI 33.6
[2020-09-14 11:50] LABS: Add Manual Diff / Slide Review NO; Basophils Absolute Auto 100 /uL (0-100); Basophils Percent Auto 1.4 % (0-2); Eosinophils Absolute Auto 200 /uL (0-450); Eosinophils Percent Auto 4.5 % (2-4); Hemoglobin 15.3 g/dL (13.5-17.5); Lymphocytes Absolute Auto 1700 /uL (1100-4500); Lymphocytes Percent Auto 34.9 % (25-40); Mean Corpuscular HGB Conc 33.9 % (30-36); Mean Corpuscular Hemoglobin 30.1 PG (26-34); Mean Corpuscular Volume 88.8 fL (80-100); Monocytes Absolute Auto 400 /uL (0-900); Monocytes Percent Auto 9.1 % (3-14); Neutrophils Absolute Auto 2400 /uL (1500-7000); Neutrophils Percent Auto 50.1 % (50-75); Platelet Count 165 X10^3/uL (150-400); Red Blood Cell Count 5.07 X10^6/uL (4.5-5.9); Red Cell Distribution Width 12.7 % (11.6-14.8); White Blood Cell Count 4.7 X10^3/uL (4.5-11.0)
[2020-09-14 11:57] LABS: Alanine Aminotransferase 30 IU/L (<50); Albumin 4.7 g/dL (3.5-5.0); Albumin Globulin Ratio 1.6 (1.0-2.8); Alkaline Phosphatase 61 U/L (38-126); Aspartate Aminotransferase 31 IU/L (17-59); BUN Creatinine Ratio 17.5 (6-22); Bilirubin Total 0.6 mg/dL (0.2-1.3); Blood Urea Nitrogen 14 mg/dL (9-20); Calcium 9.8 mg/dL (8.4-10.2); Carbon Dioxide 26 mmol/L (22-32); Chloride 105 mmol/L (98-107); Cholesterol 267 mg/dL (140-199); Estimated Glomerular Filt Rate > 60.0 mL/min (>60); Glucose 109 mg/dL (80-110); HDL Cholesterol 46 mg/dL (40-60); HEMOLYSIS < 15 (0-50); LDL Cholesterol Calculated 180 mg/dL (<100); Potassium 4.3 mmol/L (3.4-5.1); Sodium 140 mmol/L (137-145); Total Protein 7.7 g/dL (6.3-8.2); Triglycerides 206 mg/dL (35-150)
[2020-09-14 12:12] LABS: Hemoglobin A1C% w Est Avg Glu 6.3 % (4.0-6.0)
[2020-09-14 12:27] LABS: Prostate Specific Antigen 1.94 ng/mL (0.10-4.00)
[2020-09-14 12:52] LABS: Thyroid Stimulating Hormone 1.67 uIU/mL (0.47-4.68)
== END ==
PROVIDERS: Family Provider Family Medicine; PCP Nurse Practitioner; Referring Provider Nurse Practitioner; Visit Provider Nurse Practitioner
DX: Z00.00 Encounter for general adult medical examination without abnormal findings (principal)
CPT/HCPCS: 36415; 80053; 80061; 83036; 84153; 84439; 84443; 84481; 85025

== ENCOUNTER → 2021-02-06 16:26 | Outpatient (CLI) | payer OTHER, SELFPAY ==
[2019-04-29 01:26] VITALS: BMI 33.6
[2021-02-06] MEDS: COVID-19 VACC, Ad26(JANSSEN)/PF 0.5 ML IM (16:42)
== END ==
PROVIDERS: Family Provider Family Medicine; PCP Nurse Practitioner; Visit Provider Internal Medicine
DX: Z23 Encounter for immunization (principal)
CPT/HCPCS: 0031A; 91303

== ENCOUNTER 2022-12-13 08:00 | Emergency (ER) | payer OTHER, SELFPAY ==
[2019-04-29 01:26] VITALS: BMI 33.6
[2022-12-13 08:05] VITALS: BP 138/83; PULSE 77; RESP 17; TEMP 36.8; O2SAT 95; BMI 32.3
--- NOTE | 2022-12-13 08:25 | PC.NURSE ---
Pt has hx kidney stones,only able to urinate a small amount at a time. bladder scan shows less thatn 10ml at triage.
--- NOTE | 2022-12-13 08:39 | DI.CT.S_ITS ---
PROCEDURE: CT KIDNEY URETER BLADDER (KUB) INDICATIONS: right flank pain TECHNIQUE: Axial sections were acquired from the lung bases to the pubic symphysis. Coronal and sagittal reformats were performed. For radiation dose reduction, the following was used: automated exposure control, adjustment of mA and/or kV according to patient size. COMPARISON: [facility], CT, CT ABDOMEN PELVIS W CON, 12/14/2019, 11:35. FINDINGS: Image quality: Excellent. Lung bases: Unremarkable. Heart: No significant findings. URINARY: Moderate right and mild left perinephric fat stranding. Right Kidney: Nonobstructing 2 mm calculus within the right interpolar kidney. Right Ureter: No hydroureter. Left Kidney: No stones or hydronephrosis. Left Ureter: No hydroureter. Bladder: Decompressed. 2 mm calculus within the right posterior urinary bladder. ABDOMEN: Liver: Unremarkable. Gallbladder: Unremarkable. Biliary ducts: Unremarkable. Pancreas: Unremarkable. Spleen: Unremarkable. Adrenal Glands: Unremarkable. Stomach and Bowel: Diverticulosis of the descending and sigmoid colon. No evidence of acute diverticulitis. Stomach, small bowel loops, and colon are otherwise unremarkable. Normal appendix. Peritoneum: No abnormal intraperitoneal fluid. No free air. Ventral Wall: No hernia. Abdominal Nodes: No enlarged retroperitoneal or mesenteric lymph nodes. Vessels: Aorta and inferior vena cava are normal in size. PELVIS: Pelvic Organs: Unremarkable. Pelvic Nodes: Unremarkable. Miscellaneous: No inguinal hernias are seen. Bones: Moderate wedging of L4 which appears chronic. Roughly 9 mm of retropulsion at the superior L4 level, causing moderate to severe canal stenosis IMPRESSION: 1. Findings consistent with a recently passed right ureteral calculus which is now within the right posterior urinary bladder. 2. Nonobstructing right renal calculus. 3. Normal appendix. 4. Chronic L4 compression fracture as above. Dictated by: Cody Liu M.D. on 12/13/2022 at 9:18 Approved by: Cody Liu M.D. on 12/13/2022 at 9:21
[2022-12-13 08:50] LABS: Add Manual Diff / Slide Review NO; Basophils Absolute Auto 100 /uL (0-100); Basophils Percent Auto 0.5 % (0-2); Eosinophils Absolute Auto 0 /uL (0-450); Eosinophils Percent Auto 0.2 % (2-4); Hematocrit 41.3 % (41-53); Lymphocytes Absolute Auto 800 /uL (1100-4500); Lymphocytes Percent Auto 7.8 % (25-40); Mean Corpuscular HGB Conc 33.9 % (30-36); Mean Corpuscular Hemoglobin 29.1 PG (26-34); Monocytes Absolute Auto 500 /uL (0-900); Monocytes Percent Auto 4.3 % (3-14); Neutrophils Absolute Auto 9300 /uL (1500-7000); Neutrophils Percent Auto 87.2 % (50-75); Platelet Count 174 X10^3/uL (150-400); White Blood Cell Count 10.6 X10^3/uL (4.5-11.0)
[2022-12-13 08:54] LABS: Alanine Aminotransferase 42 IU/L (<50); Alkaline Phosphatase 62 U/L (38-126); Aspartate Aminotransferase 37 IU/L (17-59); BUN Creatinine Ratio 14.3 (6-22); Bilirubin Total 0.7 mg/dL (0.2-1.3); Blood Urea Nitrogen 15 mg/dL (9-20); Calcium 9.3 mg/dL (8.4-10.2); Carbon Dioxide 24 mmol/L (22-32); Chloride 102 mmol/L (98-107); Estimated Glomerular Filt Rate > 60 mL/min (>60); Glucose 193 mg/dL (80-110); HEMOLYSIS < 15 (0-50); Lipase 668 U/L (23-300); Potassium 4.7 mmol/L (3.4-5.1); Sodium 136 mmol/L (137-145); Total Protein 7.6 g/dL (6.3-8.2)
[2022-12-13] MEDS: KETOROLAC 30 MG/ML VIAL IV (09:14)
[2022-12-13] MEDS: ONDANSETRON 4 MG/2 ML INJ IV (09:14)
--- NOTE | 2022-12-13 09:50 | ED_ITS ---
HPI - Male Genitourinary General Chief complaint: Urogenital-Male Stated complaint: kidney stones Time Seen by Provider: 12/13/22 08:39 Source: patient Mode of arrival: Ambulatory History of Present Illness HPI Narrative: Patient is a 62-year-old male who has a history of diverticulitis and nephrolithiasis presenting today with right flank pain. He says that he woke up around 230 this morning and noticed he had some discomfort. Later when he woke up he started having increased right-sided flank pain radiating to the groin. Comes and goes in waves and felt nauseous. No fever or chills. [place] like a previous kidney stone. No painful or frequent urination. He did receive Toradol prior to my evaluation which he says has helped. He denies any chest pain palpitations or other symptoms. No hematuria. But only urinating small a garo at a time. Related Data Home Medications Medication Instructions Recorded Confirmed No Known Home Medications 09/14/20 09/14/20 Previous Rx's Medication Instructions Recorded varicella-zoster glycoE [id number] 0.5 ml IM ONCE #1 ea 09/14/20 adj(PF) 50 mcg/0.5 mL IM susp, kit (Shingrix (PF)) Allergies Allergy/AdvReac Type Severity Reaction Status Date / Time No Known Drug Allergies Allergy Verified 12/13/22 08:22 Review of Systems Review of Systems ROS Unobtainable: All systems reviewed & are unremarkable except as noted in HPI and below Patient History Medical History Cervical pain Diverticulosis Elevated glucose Hyperlipidemia LDL goal <100 Hypertriglyceridemia Low back pain Patient declines tobacco cessation information Tobacco dependence Surgical History Status post knee surgery Status post knee surgery Status post knee surgery Family History Brother Age: 68 Heart disease Father Heart disease History of heart bypass surgery Social History household members: spouse Smoking Status: Current every day smoker alcohol intake: current Smoking Status: Current every day smoker alcohol intake frequency: holidays/special occasions only Substance Use Type: does not use Exam Initial Vital Signs Initial Vital Signs: Vital Signs Temperature 98.2 F 12/13/22 08:05 Pulse Rate 77 12/13/22 08:05 Respiratory Rate 17 12/13/22 08:05 Blood Pressure 138/83 12/13/22 08:05 Pulse Oximetry 95 12/13/22 08:05 Oxygen Delivery Method 12/13/22 08:05 GENERAL: Alert pleasant 62-year-old and in no acute distress. HEENT: Head atraumatic,EOMI, pupils reactive, face symmetric, moist mucous membranes CARDIOVASCULAR: Regular rate and rhythm without murmurs, rubs or gallops. RESPIRATORY: Breath sounds equal bilaterally, no wheezes rales or rhonchi. ABDOMEN: Soft, no right lower quadrant tenderness no guarding no rebound no Reese sign : No CVA tenderness EXTREMITIES: Normal range of motion, no clubbing or edema. Neurovascularly intact NEUROLOGICAL: Alert and oriented x4. SKIN: Warm, dry, no laceration, no petechiae, no rashes or lesions. Course Orders Ordered: Discontinued Medications Ketorolac Tromethamine (Ketorolac 30 Mg/Ml Vial) 30 mg IV NOW ONE Stop: 12/13/22 08:40 Last Admin: 12/13/22 09:14 Dose: 30 mg Documented By: CESAR Ondansetron HCl (Ondansetron 4 Mg/2 Ml Inj) 4 mg IV NOW ONE Stop: 12/13/22 08:40 Last Admin: 12/13/22 09:14 Dose: 4 mg Documented By: CESAR Vital Signs Vital signs: Vital Signs - 8 hr 12/13/22 08:05 Temperature 98.2 F Pulse Rate 77 Respiratory Rate 17 Blood Pressure 138/83 Pulse Oximetry 95 Oxygen Delivery Method Room Air MDM - Male Genitourinary Lab Data Result diagrams: 12/13/22 08:20 12/13/22 08:20 Labs: Lab Results 12/13/22 12/13/22 Range/Units 08:20 08:20 WBC 10.6 (4.5-11.0) X10^3/uL RBC 4.80 (4.5-5.9) X10^6/uL Hgb 14.0 (13.5-17.5) g/dL Hct 41.3 (41-53) % MCV 86.0 (80-100) fL MCH 29.1 (26-34) PG MCHC 33.9 (30-36) % RDW 13.0 (11.6-14.8) % Plt Count 174 (150-400) X10^3/uL Neut % (Auto) 87.2 H (50-75) % Lymph % (Auto) 7.8 L (25-40) % [place] % (Auto) 4.3 (3-14) % Eos % (Auto) 0.2 L (2-4) % Baso % (Auto) 0.5 (0-2) % Neut # (Auto) 9300 H (2653-6357) /uL Lymph # (Auto) 800 L (0773-3684) /uL [place] # (Auto) 500 (0-900) /uL Eos # (Auto) 0 (0-450) /uL Baso # (Auto) 100 (0-100) /uL Sodium 136 L (137-145) mmol/L Potassium 4.7 (3.4-5.1) mmol/L Chloride 102 (98-107) mmol/L Carbon Dioxide 24 (22-32) mmol/L BUN 15 (9-20) mg/dL Creatinine 1.05 (0.66-1.25) mg/dL Estimated GFR > 60 (>60) mL/min BUN/Creatinine Ratio 14.3 (6-22) Glucose 193 H (80-110) mg/dL Calcium 9.3 (8.4-10.2) mg/dL Total Bilirubin 0.7 (0.2-1.3) mg/dL AST 37 (17-59) IU/L ALT 42 (<50) IU/L Alkaline Phosphatase 62 (38-126) U/L Total Protein 7.6 (6.3-8.2) g/dL Lipase 668 H (23-300) U/L Urine Dip Bedside Urine Glucose Negative Bedside Urine Bilirubin - Negative Bedside Urine Ketone - Negative Urine Specific [place] 1.030 Bedside Urine Occult Blood - Negative Bedside Urine pH 5.5 Bedside Urine Protein - Negative Bedside Urine Urobilinogen - Negative Bedside Urine Nitrite - Negative Bedside Urine Leukocytes - Negative Esterase Imaging Data CT scan - abdomen/pelvis: Radiologist's Impression: Signed Patient: Matthew Gonzalez MR#: [id number] : 1960 Acct:[id number] Age/Sex: 62 / M Date of Service: 12/13/22 Loc: ED Accession Number: [id number] ?? Procedure: CT kidney ureter bladder (KUB) Ordering Provider: Lalita Goel D.O. PROCEDURE:? CT KIDNEY URETER BLADDER (KUB) ? INDICATIONS:? right flank pain ? TECHNIQUE:? Axial sections were acquired from the lung bases to the pubic symphysis.? Co rex and sagittal reformats were performed.? For radiation dose reduction, the following was used: ?automated exposure control, adjustment of mA and/or kV according to patient size.? ? COMPARISON:? [facility], CT, CT ABDOMEN PELVIS W CON, 12/14/2019, 11:35. ? FINDINGS:? Image quality:? Excellent.? ? Lung bases:? Unremarkable.? ? Heart:? No significant findings. ? URINARY:? Moderate right and mild left perinephric fat stranding. Right Kidney:? Nonobstructing 2 mm calculus within the right interpolar kidney.? Right Ureter:? No hydroureter.? ? Left Kidney: ? No stones or hydronephrosis. Left Ureter:? No hydroureter.? ? Bladder:? Decompressed.? 2 mm calculus within the right posterior urinary bladder. ? ABDOMEN: Liver:? Unremarkable.? ? Gallbladder:? Unremarkable.? ? Biliary ducts:? Unremarkable.? ? Pancreas:? Unremarkable.? ? Spleen:? Unremarkable.? ? Adrenal Glands:? Unremarkable.? ? ? Stomach and Bowel:? Diverticulosis of the descending and sigmoid colon.? No evidence of acute diverticulitis.? Stomach, small bowel loops, and colon are otherwise unremarkable.? Normal appendix. Peritoneum:? No abnormal intraperitoneal fluid.? No free air.? ? Ventral Wall: ? No hernia.? Abdominal Nodes:? No enlarged retroperitoneal or mesenteric lymph nodes.? Vessels:? Aorta and inferior vena cava are normal in size.? ? PELVIS: Pelvic Organs:? Unremarkable.? ? Pelvic Nodes: Unremarkable. Miscellaneous: No inguinal hernias are seen. ? ? ? Bones:? Moderate wedging of L4 which appears chronic.? Roughly 9 mm of retropulsion at the superior L4 level, causing moderate to severe canal stenosis ? IMPRESSION:? ? 1.? Findings consistent with a recently passed right ureteral calculus which is now within the right posterior urinary bladder. 2. Nonobstructing right renal calculus. 3. Normal appendix. 4. Chronic L4 compression fracture as above. ? ? Dictated by: Cody Liu M.D. on 12/13/2022 at 9:18 ? ? MDM Narrative Medical decision making narrative: Patient is 62-year-old male history of nephrolithiasis presenting with right flank pain and frequent urination. CT confirms a recently passed right nephrolithiasis now in the bladder. He has no sign of kidney injury creatinine is within normal limits. No sign of UTI, he actually does not even have any hematuria. Lipase mildly elevated at 668 but thought not to be clinically significant. Pain is controlled after Toradol and Zofran. Discussed pain option control with patient however he would like to just do Tylenol and ibuprofen at home. Is not requesting any further medication MDM * differential diagnosis includes but not limited to: Appendicitis diver ticulitis nephrolithiasis testicular torsion cholelithiasis cholecystitis * Prior records reviewed: PCP visit 2019 for elevated glucose * My lab interpretation: See above * My imaging interpretation: See above * Clinical Decision Rules/Scores evaluated: None * Independent discussions with: None * Social Considerations: None * Shared Decision Making: None * diagnosis: Nephrolithiasis now in bladder *Disposition: see below, along with detailed discharge instructions that have been reviewed with patient as well as indications for ED re-evaluation and additional outpatient follow up Discharge Plan Departure Patient Disposition: Home Clinical Impression: Kidney stones Instructions: DI for Kidney Stones Activity Restrictions/Additional Instructions: *You have been diagnosed with kidney stone right side *What to do: At this time stone is in your bladder you should pass it the next time he urinate. I recommend staying on top of some light pain medication such as Tylenol or ibuprofen throughout the day. Enjoy your vacation. *Continue to take medications as directed Tylenol 1000 mg every 6 hours if needed for [id number]-[id number] pain Motrin 600 mg every 6 hours if needed for ndbo-zy-ucfijqpg pain however do not take until 4:00 p.m. *Follow up with your primary care provider in 2-3 days or call [phone] -you may need to see urologist with the frequency of your kidney stones *Return to ER if you should have increasing pain fever chills vomiting or any new, worsening or concerning symptoms Prescriptions: No Action No Known Home Medications Shingrix (PF) 50 mcg/0.5 mL suspension for reconstitution 0.5 ml IM ONCE Qty: 1 1RF Rx Instructions: as a single dose Referrals: Jeni Nunez ARNP [Primary Care Provider] - Stand Alone Forms: Patient Portal/API
[2022-12-13 10:09] VITALS: BP 122/66; PULSE 70; O2SAT 95
[2022-12-14 16:56] LABS: Albumin 4.6 g/dL (3.5-5.0); Albumin Globulin Ratio 1.5 (1.0-2.8)
== END 2022-12-13 10:10 | disposition home or self-care (01) ==
PROVIDERS: Emergency Provider Emergency Medicine; Family Provider Family Medicine; PCP Nurse Practitioner
DX: N20.0 Calculus of kidney (principal)
CPT/HCPCS: 36415; 74176; 80053; 81003; 83690; 85025; 96374; 96375; 99284; J1885; J2405

== ENCOUNTER 2023-06-07 08:38 | Emergency (ER) | payer OTHER, SELFPAY ==
[2019-04-29 01:26] VITALS: BMI 33.6
[2023-06-07 08:46] VITALS: BP 144/84; PULSE 79; RESP 16; TEMP 36.6; O2SAT 97; BMI 31.1
--- NOTE | 2023-06-07 09:14 | ED.EAR ---
HPI - Ear Problem General Chief complaint: Ear Stated complaint: R ear problems, getting worse Time Seen by Provider: 06/07/23 09:01 Source: patient, RN notes reviewed and old records reviewed Mode of arrival: Ambulatory Limitations: no limitations History of Present Illness HPI Narrative: This is a 62-year-old male history of prior knee surgeries. No other known medical issues. Patient presents with dizziness/vertigo symptoms nausea and vomiting. He states he was at [place] week and a half ago started having right ear pain, developed dizziness or vertigo like he was off-balance, he states the room does not spin it is more off balance and they gets nauseous and has to vomit. He states he went to ER and was seen so he had an ear infection was placed on Augmentin as well as given Zofran and meclizine. Ear pain has resolved, he states he is run out of the Zofran and meclizine after 24 hours was helpful his symptoms seemed to be improving but then have sort of increased again. He also appreciates that there was some fullness in the right ear as well as some decreased hearing and tinnitus and now he can not hear anything out of his right ear and that has not improved. Patient states he has had headaches for the last 2 days. He denies vision changes. No numbness, tingling or weakness, no facial droop, no difficulty with speech. No difficulty with movement of his extremities it is more quick movements of he had make him feel like he is moving. He states the room does not seem like it is spinning. Patient states he is had some nausea and vomiting again today. Denies chest pain or shortness of breath, no diarrhea constipation, no urinary symptoms. Patient states no daily medications. He is had prior orthopedic surgeries for his knees. No known drug allergies. Does use tobacco, rare alcohol, no illicit. Related Data Previous Rx's Medication Instructions Recorded meclizine 25 mg chewable tablet 25 mg PO QID #20 tabs 06/07/23 ondansetron 4 mg disintegrating 4 mg PO QID PRN nausea and 06/07/23 tablet vomiting #10 tabs prednisone 20 mg tablet 60 mg PO DAILY #21 tabs 06/07/23 Allergies Allergy/AdvReac Type Severity Reaction Status Date / Time No Known Drug Allergies Allergy Verified 12/25/22 16:27 Review of Systems Review of Systems ROS Unobtainable: All systems reviewed & are unremarkable except as noted in HPI and below Patient History Medical History Cervical pain Diverticulosis Elevated glucose Hyperlipidemia LDL goal <100 Hypertriglyceridemia Low back pain Patient declines tobacco cessation information Tobacco dependence Surgical History Status post knee surgery Status post knee surgery Status post knee surgery Family History Brother Age: 69 Heart disease Father Heart disease History of heart bypass surgery Social History household members: spouse Smoking Status: Current every day smoker alcohol intake: current Smoking Status: Current every day smoker alcohol intake frequency: holidays/special occasions only Substance Use Type: does not use Exam Narrative Exam Narrative: GEN: well nourished, well appearing male, alert and oriented x 3, patient appears to be in mild distress. HEENT: Atraumatic, pupils are equal round reactive to light, extraocular movements are intact, nares are clear, left TM is clear, retracted with no fluid, right TM is retracted, patient notes he can not hear me out of his right ear he can hear me without issue out of the left, opaque with fluid, no erythema, canal is clear with no cerumen, TM is intact stable to be fully visualized, there is no conjunctival pallor. Throat is clear without any exudates, erythema, tonsillar enlargement or uvular deviation, no facial droop. HEART: Regular rate and rhythm without murmur, clicks, rubs. LUNGS:Lungs clear to auscultation, no wheezes, rales, crackles, chest moves symmetrically ABD:bowel sounds normal, soft, non-tender, no guarding, rebound, rigidity, no masses noted, no hepatosplenomegaly :No CVA tenderness MSCL: Non-tender, no muscle atrophy, muscles strength 5/5 upper and lower extremities, full range of motion, normal gait NEURO:CN 2-12 intact, sensation normal, finger nose finger test normal, heel bernabe test normal. SKIN: No rash, erythema or other skin changes. Initial Vital Signs Initial Vital Signs: Vital Signs Temperature 97.8 F 06/07/23 08:46 Pulse Rate 79 06/07/23 08:46 Respiratory Rate 16 06/07/23 08:46 Blood Pressure 144/84 H 06/07/23 08:46 Pulse Oximetry 97 06/07/23 08:46 Oxygen Delivery Method Room Air 06/07/23 08:46 Scores NIH Stroke Scale Level of Conciousness: Alert, keenly responsive Ask month/age: Answers both questions correctly. Open/close eyes, close hand: Performs both tasks correctly Best gaze horizontal: Normal Visual grey: No visual loss Facial palsy: Normal symetrical movement Left arm drift: No drift for full 10 sec Right arm drift: No drift for full 10 sec Left leg drift: No drift for full 5 sec Right leg drift: No drift for full 5 sec Limb ataxia: Absent Sensory on face/arms/legs: Normal, no sensory loss Best language: No aphasia, normal Dysarthria: Normal Extinction or inattention: No abnormality Total NIH Stroke scale score: 0 Course Orders Ordered: Discontinued Medications Sodium Chloride (Normal Saline 0.9%) 1,000 mls @ 1,000 mls/hr IV BOLUS ONE Stop: 06/07/23 10:25 Last Infusion: 06/07/23 11:32 Dose: 0 mls/hr Documented By: Admin: 06/07/23 10:18 Dose: 1,000 mls/hr Documented By: NR Meclizine HCl (Meclizine Hcl 12.5 Mg Tablet) 50 mg PO NOW ONE Stop: 06/07/23 09:34 Last Admin: 06/07/23 10:38 Dose: 50 mg Documented By: NR Ondansetron HCl (Ondansetron 4 Mg/2 Ml Inj) 4 mg IV NOW ONE Stop: 06/07/23 09:27 Last Admin: 06/07/23 10:16 Dose: 4 mg Documented By: NR Prednisone (Prednisone 20 Mg Tablet) 60 mg PO NOW ONE Stop: 06/07/23 11:36 Last Admin: 06/07/23 11:46 Dose: 60 mg Documented By: NR Vital Signs Vital signs: Vital Signs - 8 hr 06/07/23 11:30 06/07/23 11:30 06/07/23 12:00 Pulse Rate 58 L Respiratory Rate 11 L Blood Pressure 127/67 143/72 H Pulse Oximetry 99 06/07/23 12:00 Pulse Rate 58 L Respiratory Rate 12 Blood Pressure Pulse Oximetry 97 Medical Decision Making Lab Data 06/07/23 10:07 06/07/23 10:07 Labs: Lab Results 06/07/23 06/07/23 06/07/23 Range/Units 10:07 10:07 10:07 WBC 5.7 (4.5-11.0) X10^3/uL RBC 5.24 (4.5-5.9) X10^6/uL Hgb 15.3 (13.5-17.5) g/dL Hct 45.0 (41-53) % MCV 85.7 (80-100) fL MCH 29.2 (26-34) PG MCHC 34.0 (30-36) % RDW 13.4 (11.6-14.8) % Plt Count 167 (150-400) X10^3/uL Neut % (Auto) 68.4 (50-75) % Lymph % (Auto) 22.8 L (25-40) % [place] % (Auto) 6.5 (3-14) % Eos % (Auto) 1.4 L (2-4) % Baso % (Auto) 0.9 (0-2) % Neut # (Auto) 3900 (6484-8274) /uL Lymph # (Auto) 1300 (6808-4185) /uL [place] # (Auto) 400 (0-900) /uL Eos # (Auto) 100 (0-450) /uL Baso # (Auto) 0 (0-100) /uL PT 11.8 (10.1-12.7) SECONDS INR 1.0 (0.9-1.3) APTT 27 (26-36) SECONDS Sodium 139 (137-145) mmol/L Potassium 4.4 (3.4-5.1) mmol/L Chloride 103 (98-107) mmol/L Carbon Dioxide 25 (22-32) mmol/L BUN 15 (9-20) mg/dL Creatinine 0.73 (0.66-1.25) mg/dL Estimated GFR > 60 (>60) mL/min BUN/Creatinine Ratio 20.5 (6-22) Glucose 174 H (80-110) mg/dL Calcium 9.5 (8.4-10.2) mg/dL Total Bilirubin 0.8 (0.2-1.3) mg/dL AST 30 (17-59) IU/L ALT 41 (<50) IU/L Alkaline Phosphatase 55 (38-126) U/L Total Protein 7.9 (6.3-8.2) g/dL Albumin 4.8 (3.5-5.0) g/dL Globulin 3.1 (1.7-4.1) g/dL Albumin/Globulin Ratio 1.5 (1.0-2.8) Imaging Data CTA - brain/neck: Radiologist's Impression: Close Head/Neck CTA (Signed) Roberto Oliveira - 06/07/23 Launch?[address] [address] [address] Scan Report Signed Patient: Matthew Gonzalez MR#: [id number] : 1960 Acct:[id number] Age/Sex: 62 / M Date of Service: 06/07/23 Loc: ED Accession Number: [id number] ?? Procedure: CT angio head and neck Ordering Provider: Cristina Rajput D.O. PROCEDURE:? CT ANGIO HEAD AND NECK ? INDICATIONS:? right ear hearing loss, vertigo, nausea, 1 wk, no infection ? TECHNIQUE:? Pre-contrast 4.5 mm thick sections acquired from the foramen magnum to the vertex.? After the administration of intravenous contrast, 1 mm thick sections acquired from the aortic arch through the [place] of [place].? Post-contrast 4.5 mm thick sections then re-acquired from the foramen magnum to the vertex.? 3-dimensional wexzzbb-ndltmxuia-nkeqrevvko (MIP) and/or volume rendering reformats were acquired of the central intracranial vasculature and neck separately. For radiation dose reduction, the following was used:? automated exposure control, adjustment of mA and/or kV according to patient size.? ? COMPARISON:? None. ? FINDINGS:? Image quality:? Excellent.? ? BRAIN:? CSF spaces:? Ventricles are normal in size and shape.? Basal cisterns are patent.? No extra-axial fluid collections.? ? Brain:? No midline shift.? No intracranial bleeds or masses.? Todd-white matter interface appears intact.? ? Skull and face:? Calvarium and facial bones appear intact, without suspicious lesions.? Orbits appear normal.? ? Sinuses:? Sinuses and mastoids are clear.? ? HEAD ANGIOGRAPHY Anterior circulation: ICAs: Normal and symmetric ACAs: Normal and symmetric MCAs: Normal and symmetric AComm: No aneurysm Venous sinuses: patent ? Posterior circulation: Dominance: Equal Vertebral arteries: No stenosis or occlusion. No aneurysm. Basilar artery: Unremarkable PComms: No aneurysm wet process head miller: Unremarkable ? NECK ANGIOGRAPHY Aortic arch and subclavian arteries: Normal flow, no aneurysm. CCAs: No stenosis, occlusion, or aneurysm. ICA origins (by NASCET criteria): No hemodynamically significant narrowing. ICAs: No stenosis, occlusion or aneurysm. ECAs: Origins are patent. Vertebral arteries: Unremarkable ? Soft tissues: No significant mass, aneurysm, or lymphadenopathy Lung apices: No pneumothorax Bones: No acute or suspicious abnormality. Soft tissues:? Visualized neck soft tissues demonstrate no suspicious abnormalities.? ? Bones:? No suspicious bony lesions.? Visualized cervical spine appears normally aligned.? IMPRESSION:? Patent head and neck vasculature. ? Any quantitative measurements of stenosis were performed using NASCET criteria.? ? ? Dictated by: Roberto Oliveira M.D. on 06/07/2023 at 10:55 ? ? Approved by: Roberto Oliveira M.D. on 06/07/2023 at 11:00?? MDM Narrative Medical decision making narrative: Patient presents with reported ear infection, vertigo symptoms nausea and vomiting tinnitus and decreased hearing. Patient has completed Augmentin prescription, his ear does not appear infected there is fluid, it is retracted suspect he may have labyrinthitis but with his hearing loss in the right ear felt appropriate to evaluate with head CT and imaging to evaluate for mass, neuroma or other changes. Labs were included as well. Workup shows no acute changes to labs. CT angio shows patent had an neck vasculature with no acute changes. No mass, aneurysm or dissection. On examination patient does have decreased hearing. Conductive hearing on the right with tuning fork patient does not appreciate anything when for forehead right upper tooth or over the mastoid on the right side but does appreciated on the left. Discussed with Dr. Harjinder Buck, ENT concern for sensorineural hearing loss discussed patient has is retracted does not appear infected. Possibility for labyrinthitis but does have hearing loss on examination and no clear changes consistent with stroke. He would like patient started on 60 mg prednisone and like patient seen today in their outpatient office in [place] for potential sensorineural hearing loss. Discussed with patient, he is feeling improved after treatments here in the department and is agreeable to follow up with ENT. Patient needs follow up with ENT for evaluation. Plan to continue with meclizine, Zofran as needed. Prednisone 60mg po given. Patient has a appointment at 3:15 p.m. today with ENT. Discharge Plan Departure Patient Disposition: Home Clinical Impression: Acute hearing loss of left ear, Vertigo Activity Restrictions/Additional Instructions: Follow up with ENT, call for an appointment. Referral is included below. Follow up today at the office in [facility]. Appointment is at 3:15pm today. There is some concern that you may have issue with the nerve or sensorineural hearing loss so it is important to follow-up. You may continue meclizine 1-2 tablets every 6 hours as needed. This is also available veta-dhi-muzsimp as antiverit or bonivert. You may also take Zofran 1 tablet every 6 hours for nausea. Take prednisone 60 mg daily until ENT adjust your dose. [facility] [place] Please return for fevers, new or worsening headaches, vision changes, worsening dizziness or vertigo, persistent vomiting, inability to ambulate safely, new numbness, tingling or weakness, facial droop, difficulty with speech or other new or concerning changes. Prescriptions: New prednisone 20 mg tablet 60 mg PO DAILY Qty: 21 0RF meclizine 25 mg tablet,chewable 25 mg PO QID Qty: 20 0RF Rx Instructions: 1-2 tabs every 6 hours as needed for dizziness/vertigo ondansetron 4 mg tablet,disintegrating 4 mg PO QID PRN (Reason: nausea and vomiting) Qty: 10 0RF Referrals: Jeni Nunez ARNP [Primary Care Provider] - Harjinder Buck MD [Physician] - Stand Alone Forms: Patient Portal/API
--- NOTE | 2023-06-07 09:27 | DI.CT.S_ITS ---
PROCEDURE: CT ANGIO HEAD AND NECK INDICATIONS: right ear hearing loss, vertigo, nausea, 1 wk, no infection TECHNIQUE: Pre-contrast 4.5 mm thick sections acquired from the foramen magnum to the vertex. After the administration of intravenous contrast, 1 mm thick sections acquired from the aortic arch through the [place] of [place]. Post-contrast 4.5 mm thick sections then re-acquired from the foramen magnum to the vertex. 3-dimensional vekabwi-thpfxdmey-hggwtiehff (MIP) and/or volume rendering reformats were acquired of the central intracranial vasculature and neck separately. For radiation dose reduction, the following was used: automated exposure control, adjustment of mA and/or kV according to patient size. COMPARISON: None. FINDINGS: Image quality: Excellent. BRAIN: CSF spaces: Ventricles are normal in size and shape. Basal cisterns are patent. No extra-axial fluid collections. Brain: No midline shift. No intracranial bleeds or masses. Todd-white matter interface appears intact. Skull and face: Calvarium and facial bones appear intact, without suspicious lesions. Orbits appear normal. Sinuses: Sinuses and mastoids are clear. HEAD ANGIOGRAPHY Anterior circulation: ICAs: Normal and symmetric ACAs: Normal and symmetric MCAs: Normal and symmetric AComm: No aneurysm Venous sinuses: patent Posterior circulation: Dominance: Equal Vertebral arteries: No stenosis or occlusion. No aneurysm. Basilar artery: Unremarkable PComms: No aneurysm furniture manager: Unremarkable NECK ANGIOGRAPHY Aortic arch and subclavian arteries: Normal flow, no aneurysm. CCAs: No stenosis, occlusion, or aneurysm. ICA origins (by NASCET criteria): No hemodynamically significant narrowing. ICAs: No stenosis, occlusion or aneurysm. ECAs: Origins are patent. Vertebral arteries: Unremarkable Soft tissues: No significant mass, aneurysm, or lymphadenopathy Lung apices: No pneumothorax Bones: No acute or suspicious abnormality. Soft tissues: Visualized neck soft tissues demonstrate no suspicious abnormalities. Bones: No suspicious bony lesions. Visualized cervical spine appears normally aligned. IMPRESSION: Patent head and neck vasculature. Any quantitative measurements of stenosis were performed using NASCET criteria. Dictated by: Roberto Oliveira M.D. on 06/07/2023 at 10:55 Approved by: Roberto Oliveira M.D. on 06/07/2023 at 11:00
[2023-06-07 10:15] LABS: Add Manual Diff / Slide Review NO; Basophils Absolute Auto 0 /uL (0-100); Basophils Percent Auto 0.9 % (0-2); Eosinophils Absolute Auto 100 /uL (0-450); Eosinophils Percent Auto 1.4 % (2-4); Hemoglobin 15.3 g/dL (13.5-17.5); Lymphocytes Absolute Auto 1300 /uL (1100-4500); Lymphocytes Percent Auto 22.8 % (25-40); Mean Corpuscular Hemoglobin 29.2 PG (26-34); Mean Corpuscular Volume 85.7 fL (80-100); Monocytes Absolute Auto 400 /uL (0-900); Monocytes Percent Auto 6.5 % (3-14); Neutrophils Absolute Auto 3900 /uL (1500-7000); Neutrophils Percent Auto 68.4 % (50-75); Platelet Count 167 X10^3/uL (150-400); Red Blood Cell Count 5.24 X10^6/uL (4.5-5.9); Red Cell Distribution Width 13.4 % (11.6-14.8); White Blood Cell Count 5.7 X10^3/uL (4.5-11.0)
[2023-06-07] MEDS: ONDANSETRON 4 MG/2 ML INJ IV (10:16)
[2023-06-07] MEDS: SODIUM CHLORIDE 0.9% 1,000 ML 1000 ML IV (10:18)
[2023-06-07 10:20] LABS: Prothrombin Time 11.8 SECONDS (10.1-12.7)
[2023-06-07 10:23] LABS: PTT Partial Thromboplastin Tim 27 SECONDS (26-36)
[2023-06-07 10:25] LABS: Alanine Aminotransferase 41 IU/L (<50); Albumin 4.8 g/dL (3.5-5.0); Albumin Globulin Ratio 1.5 (1.0-2.8); Alkaline Phosphatase 55 U/L (38-126); Aspartate Aminotransferase 30 IU/L (17-59); BUN Creatinine Ratio 20.5 (6-22); Bilirubin Total 0.8 mg/dL (0.2-1.3); Blood Urea Nitrogen 15 mg/dL (9-20); Calcium 9.5 mg/dL (8.4-10.2); Carbon Dioxide 25 mmol/L (22-32); Chloride 103 mmol/L (98-107); Estimated Glomerular Filt Rate > 60 mL/min (>60); Globulin 3.1 g/dL (1.7-4.1); Glucose 174 mg/dL (80-110); HEMOLYSIS 24 (0-50); Potassium 4.4 mmol/L (3.4-5.1); Sodium 139 mmol/L (137-145); Total Protein 7.9 g/dL (6.3-8.2)
[2023-06-07] MEDS: MECLIZINE HCL 12.5 MG TABLET 50 MG PO (10:38)
[2023-06-07 11:00] VITALS: PULSE 54; RESP 11; O2SAT 97
[2023-06-07 11:30] VITALS: BP 127/67; PULSE 58; RESP 11; O2SAT 99
[2023-06-07] MEDS: predniSONE 20 MG TABLET 60 MG PO (11:46)
--- NOTE | 2023-06-07 11:54 | PC.NURSE ---
Spoke to Araceli at [facility]. Appt today at 1515. face sheet with updated ins info as well as chart notes and imaging faxed [phone]. Call back #[phone]
[2023-06-07 12:00] VITALS: BP 143/72; PULSE 58; RESP 12; O2SAT 97
--- NOTE | 2023-06-07 12:01 | PC.NURSE ---
pt has is here for a recheck from an ER visit in [place] on saturday. states he thought the medications were working but now they are not. he is having dizziness, hearing loss and nausea/vomiting due to the dizzy feeling.
== END 2023-06-07 12:32 | disposition home or self-care (01) ==
PROVIDERS: Emergency Provider Emergency Medicine; Family Provider Family Medicine; PCP Nurse Practitioner
DX: H91.92 Unspecified hearing loss, left ear (principal); R42 Dizziness and giddiness; R11.2 Nausea with vomiting, unspecified
CPT/HCPCS: 36415; 70496; 70498; 80053; 85025; 85610; 85730; 96361; 96374; 99284; 99285; J2405; Q9967

== ENCOUNTER → 2023-06-11 07:11 | Outpatient (CLI) | payer OTHER, SELFPAY ==
[2019-04-29 01:26] VITALS: BMI 33.6
[2023-06-11 09:52] LABS: Glucose 122 mg/dL (80-110)
[2023-06-11 10:05] LABS: Free T3, Triiodothyronine Free 3.09 pg/mL (2.77-5.27); Free T4, Direct Thyroxine 0.73 ng/dL (0.78-2.19)
[2023-06-11 10:19] LABS: Thyroid Stimulating Hormone 3.99 uIU/mL (0.47-4.68)
[2023-06-11 10:21] LABS: Prostate Specific Antigen Scrn 1.38 ng/mL (0.1-4.0)
[2023-06-12 06:05] LABS: Cholesterol HDL Ratio 3.8 ratio (0.0-5.0); Cholesterol,Total 220 mg/dL (100-199); HDL Cholesterol 58 mg/dL (>39); LDL Cholesterol Cal 137 mg/dL (0-99); Triglycerides 139 mg/dL (0-149); VLDL Cholesterol Cal 25 mg/dL (5-40)
[2023-06-12 06:05] LABS: x Labcorp Estim. Avg Glu (eAG) 151 mg/dL (.); x Labcorp Hemoglobin A1c 6.9 % (4.8-5.6)
== END ==
PROVIDERS: Family Provider Family Medicine; PCP Nurse Practitioner; Referring Provider Nurse Practitioner; Visit Provider Nurse Practitioner
DX: E78.1 Pure hyperglyceridemia (principal); E78.5 Hyperlipidemia, unspecified; R73.09 Other abnormal glucose; Z12.5 Encounter for screening for malignant neoplasm of prostate
CPT/HCPCS: 36415; 80061; 82947; 83036; 84439; 84443; 84481; G0103

== ENCOUNTER 2024-04-10 13:15 | Day surgery (SDC) | payer OTHER, SELFPAY ==
[2019-04-29 01:26] VITALS: BMI 33.6
[2024-04-10] MEDS: LACTATED RINGERS 1,000 ML 42 ML IV (13:46)
[2024-04-10 13:50] VITALS: BP 130/82; PULSE 86; RESP 18; TEMP 36.6; O2SAT 96
--- NOTE | 2024-04-10 14:33 | PM.HP.1 ---
History of Present Illness History of Present Illness Date Patient Seen: 04/10/24 Time Patient Seen: 14:34 Chief complaint: Screening Colonoscopy Narrative: 63-year-old man here for screening colonoscopy. Last colonoscopy 12 years ago normal. No abdominal concerns today. No family history of intestinal malignancy. [facility] Medical History Diabetes mellitus Sinus disease Hyperlipidemia associated with type 2 diabetes mellitus Type 2 diabetes mellitus Elevated blood pressure reading in office without diagnosis of hypertension Acute hearing loss of right ear Hypertriglyceridemia Hyperlipidemia LDL goal <100 Patient declines tobacco cessation information Tobacco dependence Cervical pain Low back pain Diverticulosis Surgical History Status post knee surgery Status post knee surgery Status post knee surgery Family History Brother Age: 70 Heart disease Father Heart disease History of heart bypass surgery Social History household members: spouse Smoking Status: Current every day smoker alcohol intake: current Meds Home Medications and Allergies Allergies Allergy/AdvReac Type Severity Reaction Status Date / Time No Known Drug Allergies Allergy Verified 04/10/24 13:51 Exam Vital Signs (past 8 hours): - 04/10/24 13:50 Temperature 97.8 F Pulse Rate 86 Respiratory Rate 18 Blood Pressure 130/82 Pulse Oximetry 96 Oxygen Delivery Method Room Air Oxygen Delivery Method Room Air Narrative Exam Narrative: General adult man alert oriented no acute distress Chest nonlabored respiration Extremities warm well perfused Assessment & Plan Assessment & Plan narrative: The patient requires colorectal screening and colonoscopy is recommended. Technical details were discussed. Risks, benefits, alternatives explained. Risks including but not limited to myocardial infarction, aspiration, bleeding, pain, missed lesion, incomplete examination, need for further radiographic studies, intestinal injury, and need for major abdominal surgery were discussed. All questions were answered to their satisfaction, and they are in agreement with this plan.
[2024-04-10 15:12] VITALS: BP 102/70; PULSE 74; RESP 20; TEMP 36.4; O2SAT 95
--- NOTE | 2024-04-10 15:16 | P.OP.COLON_ITS ---
Operative Date/Time/Diagnoses Date of procedure: 04/10/24 Time of procedure: 15:16 Pre-op diagnosis: Colorectal screening Procedure & Clinicians Study performed: Screening colonoscopy Same procedure as scheduled: Yes Indications: Colorectal screening Surgeon: Lance Randall Procedure Notes Procedure in detail: The history and physical was performed/updated and the patient is ASA class is 2. The procedure was discussed in detail with the patient. Potential risks co mplications including infection, bleeding, missed diagnosis, perforation, need for surgery, and were explained. Their questions were answered and informed consent was obtained. Patient was brought to the procedure room and placed standard monitoring equipment. The patient's vital signs were monitored continuously throughout the entire procedure. Prior to starting time-out was performed. The patient was placed in the left lateral recumbent position. Procedural sedation was administered by anesthesia. Examination began with a thorough inspection of the perianal area there was no evidence of fissures, fistulae, external hemorrhoids or cutaneous malignancy. The colonoscopy scope was then placed into the anal canal and was advanced to the cecum, which was identified by the ileocecal valve, the appendiceal orifice and the confluence of the taenia. The scope was then slowly withdrawn examining colon thoroughly in all directions, irrigating it of any residual stool. The scope was retroflexed within the rectum The patient tolerated the procedure well. They will be discharged once criteria are met. The prep was of fair quality. The withdrawl time was 6 minutes. FINDINGS * No masses or polyps * Extensive archibald diverticulosis Specimen(s): none sent Impression: Diverticulosis Post-procedure Recommendations: Colonoscopy in 10 years and High fiber diet Disposition: same day surgery
[2024-04-10 15:17] VITALS: BP 114/77; PULSE 74; RESP 15; O2SAT 95
[2024-04-10 15:19] VITALS: BP 103/71; PULSE 70; RESP 14; O2SAT 95
== END 2024-04-10 15:43 | disposition home or self-care (01) ==
PROVIDERS: Family Provider Family Medicine; PCP Nurse Practitioner; Referring Provider Surgery; Visit Provider Surgery
PROC: 0DJD8ZZ Inspection of Lower Intestinal Tract, Via Natural or Artificial Opening Endoscopic (ICD-10-PCS; CPT 45378; principal; 2024-04-10 15:00)
DX: Z12.11 Encounter for screening for malignant neoplasm of colon (principal); K57.30 Diverticulosis of large intestine without perforation or abscess without bleeding
CPT/HCPCS: 45378; J2704

== ENCOUNTER 2024-10-11 08:54 | Emergency (ER) | payer OTHER, SELFPAY ==
[2019-04-29 01:26] VITALS: BMI 33.6
--- NOTE | 2024-10-11 09:00 | DI.RAD.S_ITS ---
PROCEDURE: XR WRIST LT MIN 3V INDICATIONS: Fall with wrist pain TECHNIQUE: 3 views of the wrist were acquired. COMPARISON: None. FINDINGS: Bones: No fractures or dislocations. No suspicious bony lesions. Soft tissues: No suspicious soft tissue calcifications. IMPRESSION: No acute bony abnormality. Approved by: Vimal Kinsey M.D. on 10/11/2024 at 8:59
--- NOTE | 2024-10-11 09:00 | DI.RAD.S_ITS ---
PROCEDURE: XR WRIST RT MIN 3V INDICATIONS: Fall with wrist pain TECHNIQUE: 3 views of the wrist were acquired. COMPARISON: None. FINDINGS: Bones: No fractures or dislocations. No suspicious bony lesions. Soft tissues: No suspicious soft tissue calcifications. IMPRESSION: No acute bony abnormality. Approved by: Vimal Kinsey M.D. on 10/11/2024 at 9:00
[2024-10-11 09:06] VITALS: BP 158/92; PULSE 82; RESP 16; TEMP 36.6; O2SAT 99; BMI 30.6
--- NOTE | 2024-10-11 09:29 | DI.MRI.S_ITS ---
PROCEDURE: MR CERVICAL SPINE WO CON INDICATIONS: Hyperextension injury, radiculopathy eval for cord syndrome TECHNIQUE: Noncontrast sagittal T1 spin echo and T2 fast spin echo, sagittal STIR, foraminal oblique sagittal T2 fast spin echo, and axial gradient echo or T2 fast spin echo through the cervical spine. COMPARISON: None. FINDINGS: Image quality: Excellent. Alignment and Curvature: There is normal bony alignment. Bone Marrow: Marrow demonstrates normal overall signal. Spinal Cord: Visualized spinal cord has normal size and signal. No cerebellar tonsillar herniation. Paraspinous Soft Tissues: Mild edema in the inter spinous ligaments at C5-6, C6-7 and C7-T1 At the disc levels, there is disc space narrowing and posterior disc osteophyte complexes at C3-4, C4-5 and C5-6 with mild central stenosis. Arthropathy is associated with moderate bilateral foraminal stenosis. IMPRESSION: No evidence of fracture or traumatic malalignment. Cord signal in volume unremarkable without edema Multilevel degenerative disc disease and arthropathy associated with mild central and moderate bilateral foraminal stenosis in the mid cervical spine. Edema in the inter spinous ligaments in the lower cervical spine may reflect ligamental strain or sprain Approved by: Vimal Kinsey M.D. on 10/11/2024 at 10:25
--- NOTE | 2024-10-11 09:32 | ED_ITS ---
HPI - General Adult General Chief complaint: Extremity Injury, Upper Stated complaint: fall, wrist injury, swelling Time Seen by Provider: 10/11/24 08:55 Source: patient Mode of arrival: Family Vehicle History of Present Illness HPI narrative: Patient is a 64-year-old male who is here for evaluation of injuries that he sustained after falling approximately 2 weeks ago. 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 He states the handle broke. He fell forward. He landed on his knees in his right hip. Also landed on his wrist. Also hit his head. He also states he extended his arms to try to hold the cart from falling over. Since that time he was had progressively worsening pain and weakness in his knees in his hips to the point where it is difficult for him to stand up. He also reports that he has swelling to both of his wrists. Tingling to his thumb index middle and part of his ring finger on both of his hands. He has been doing ibuprofen. He also states he was difficulty lifting his arms above his shoulders. States this is because of discomfort. No headache. No chest pain or shortness of breath. Was not evaluated after the event. Related Data Previous Rx's Medication Instructions Recorded hydrocodone 5 mg-acetaminophen 325 1 tab PO Q4-6H PRN pain #14 tabs 10/11/24 mg tablet prednisone 20 mg tablet 20 mg PO DAILY 7 days #7 tabs 10/11/24 Allergies Allergy/AdvReac Type Severity Reaction Status Date / Time No Known Drug Allergies Allergy Verified 10/11/24 09:13 Review of Systems Review of Systems ROS Unobtainable: All systems reviewed & are unremarkable except as noted in HPI and below Patient History Medical History Diabetes mellitus Sinus disease Hyperlipidemia associated with type 2 diabetes mellitus Type 2 diabetes mellitus Elevated blood pressure reading in office without diagnosis of hypertension Acute hearing loss of right ear Hypertriglyceridemia Hyperlipidemia LDL goal <100 Patient declines tobacco cessation information Tobacco dependence Cervical pain Low back pain Diverticulosis Surgical History Status post knee surgery Status post knee surgery Status post knee surgery Family History Brother Age: 70 Heart disease Father Heart disease History of heart bypass surgery Social History household members: spouse Smoking Status: Current every day smoker alcohol intake: current Smoking Status: Current every day smoker tobacco type: cigarettes alcohol intake frequency: holidays/special occasions only Substance Use Type: does not use Exam Initial Vital Signs Initial Vital Signs: Vital Signs Temperature 97.8 F 10/11/24 09:06 Pulse Rate 82 10/11/24 09:06 Respiratory Rate 16 10/11/24 09:06 Blood Pressure 158/92 H 10/11/24 09:06 Pulse Oximetry 99 10/11/24 09:06 Oxygen Delivery Method Room Air 10/11/24 09:06 Const General: cooperative, comfortable and No ill appearing HENMT Head: normal to inspection Chest Chest: No crepitus and No tenderness Resp Effort & Inspection: normal respiratory effort Cardio Rate: regular rate Back/Spine/Pelvis Other: Discomfort to bilateral paraspinal cervical and upper thoracic regions. Skin General: no rashes or lesions noted Neuro Other: Decreased sensation to both of his hands in the median nerve distribution. Extrem Other: Swelling to bilateral wrists. His elbows are unremarkable. He was ambulatory. Patient has difficulty extending his shoulders above 90?. Course Orders Ordered: ED Orders 10/11/24 09:00 XR wrist LT min 3V Stat XR wrist RT min 3V Stat 10/11/24 09:29 MR cervical spine wo con Stat 10/11/24 09:47 Basic Metabolic Panel Stat Complete Blood Count AUTO DIFF Stat Discontinued Medications Hydromorphone HCl (Hydromorphone 1 Mg Inj) 1 mg IV NOW ONE Stop: 10/11/24 09:35 Last Admin: 10/11/24 09:39 Dose: 1 mg Documented By: FABRICE Ketorolac Tromethamine (Ketorolac 30 Mg/Ml Vial) 30 mg IV NOW ONE Stop: 10/11/24 11:36 Methylprednisolone (Methylprednisolone 125 Mg/2 Ml Vial) 125 mg IV NOW ONE Stop: 10/11/24 11:36 Vital Signs Vital signs: Vital Signs - 8 hr 10/11/24 09:06 Temperature 97.8 F Pulse Rate 82 Respiratory Rate 16 Blood Pressure 158/92 H Pulse Oximetry 99 Oxygen Delivery Method Room Air Medical Decision Making Lab Data Lab results reviewed: Yes I reviewed the patient's lab results. 10/11/24 09:47 10/11/24 09:47 Labs: Lab Results 10/11/24 Range/Units 09:47 WBC 7.9 (4.5-11.0) X10^3/uL RBC 4.61 (4.5-5.9) X10^6/uL Hgb 13.3 L (13.5-17.5) g/dL Hct 39.8 L (41-53) % MCV 86.4 (80-100) fL MCH 28.8 (26-34) PG MCHC 33.4 (30-36) % RDW 12.6 (11.6-14.8) % Plt Count 298 (150-400) X10^3/uL Neut % (Auto) 71.1 (50-75) % Lymph % (Auto) 17.6 L (25-40) % [place] % (Auto) 9.6 (3-14) % Eos % (Auto) 0.9 L (2-4) % Baso % (Auto) 0.8 (0-2) % Neut # (Auto) 5600 (1298-4273) /uL Lymph # (Auto) 1400 (4723-8322) /uL [place] # (Auto) 800 (0-900) /uL Eos # (Auto) 100 (0-450) /uL Baso # (Auto) 100 (0-100) /uL Sodium 136 L (137-145) mmol/L Potassium 4.3 (3.4-5.1) mmol/L Chloride 102 (98-107) mmol/L Carbon Dioxide 24 (22-32) mmol/L BUN 15 (9-20) mg/dL Creatinine 0.76 (0.66-1.25) mg/dL Estimated GFR > 60 (>60) mL/min BUN/Creatinine Ratio 19.7 (6-22) Glucose 124 H (80-110) mg/dL Calcium 9.6 (8.4-10.2) mg/dL Imaging Data Extremity x-ray #1: Radiologist's Impression: PROCEDURE: XR WRIST LT MIN 3V INDICATIONS: Fall with wrist pain TECHNIQUE: 3 views of the wrist were acquired. COMPARISON: None. FINDINGS: Bones: No fractures or dislocations. No suspicious bony lesions. Soft tissues: No suspicious soft tissue calcifications. IMPRESSION: No acute bony abnormality. Extremity x-ray #2: Radiologist's Impression: PROCEDURE: XR WRIST RT MIN 3V INDICATIONS: Fall with wrist pain TECHNIQUE: 3 views of the wrist were acquired. COMPARISON: None. FINDINGS: Bones: No fractures or dislocations. No suspicious bony lesions. Soft tissues: No suspicious soft tissue calcifications. IMPRESSION: No acute bony abnormality. MR cervical spine: Radiologist's Impression: PROCEDURE: MR CERVICAL SPINE WO CON INDICATIONS: Hyperextension injury, radiculopathy eval for cord syndrome TECHNIQUE: Noncontrast sagittal T1 spin echo and T2 fast spin echo, sagittal STIR, foraminal oblique sagittal T2 fast spin echo, and axial gradient echo or T2 fast spin echo through the cervical spine. COMPARISON: None. FINDINGS: Image quality: Excellent. Alignment and Curvature: There is normal bony alignment. Bone Marrow: Marrow demonstrates normal overall signal. Spinal Cord: Visualized spinal cord has normal size and signal. No cerebellar tonsillar herniation. Paraspinous Soft Tissues: Mild edema in the inter spinous ligaments at C5-6, C6-7 and C7-T1 At the disc levels, there is disc space narrowing and posterior disc osteophyte complexes at C3-4, C4-5 and C5-6 with mild central stenosis. Arthropathy is associated with moderate bilateral foraminal stenosis. IMPRESSION: No evidence of fracture or traumatic malalignment. Cord signal in volume unremarkable without edema Multilevel degenerative disc disease and arthropathy associated with mild central and moderate bilateral foraminal stenosis in the mid cervical spine. Edema in the inter spinous ligaments in the lower cervical spine may reflect ligamental strain or sprain MDM Narrative Medical decision making narrative: Cervical spine MRI is relatively unremarkable. It does show some signal across the ligaments would be consistent with more of a strain/whiplash injury. This would correspond to his presenting symptoms today. No fevers. No indication for emergent neurologic surgical consultation. No fractures of his wrists. L and I paperwork will be completed. Will provide pain medication and 1 week of steroids. Advised that he contact his primary care doctor/L and I provider for a follow-up. He was given return precautions. He expressed understanding and agreement with the plan. Discharge Plan Departure Patient Disposition: Home Clinical Impression: Cervical muscle strain, Cervical radiculopathy Instructions: DI for Muscle Strain Activity Restrictions/Additional Instructions: You are going to need follow-up. Most likely with the L and I providers. I also recommend that you contact your primary care doctor for a follow-up. Recommend conservative measures such as heat/ice and also light stretching. Your restrictions only limited on the discomfort that you are having. Return to the emergency department for new symptoms. Prescriptions: New hydrocodone-acetaminophen 5-325 mg tablet 1 tab PO Q4-6H PRN (Reason: pain) Qty: 14 0RF prednisone 20 mg tablet 20 mg PO DAILY 7 Days Qty: 7 0RF Referrals: Jeni Nunez ARNP [Primary Care Provider] - Stand Alone Forms: Patient Portal/API/Survey, Work Release Note
[2024-10-11] MEDS: HYDROMORPHONE 1 MG INJ IV (09:39)
[2024-10-11 09:56] LABS: Add Manual Diff / Slide Review NO; Basophils Absolute Auto 100 /uL (0-100); Basophils Percent Auto 0.8 % (0-2); Eosinophils Absolute Auto 100 /uL (0-450); Eosinophils Percent Auto 0.9 % (2-4); Hematocrit 39.8 % (41-53); Hemoglobin 13.3 g/dL (13.5-17.5); Lymphocytes Absolute Auto 1400 /uL (1100-4500); Lymphocytes Percent Auto 17.6 % (25-40); Mean Corpuscular HGB Conc 33.4 % (30-36); Mean Corpuscular Hemoglobin 28.8 PG (26-34); Mean Corpuscular Volume 86.4 fL (80-100); Monocytes Absolute Auto 800 /uL (0-900); Monocytes Percent Auto 9.6 % (3-14); Neutrophils Absolute Auto 5600 /uL (1500-7000); Neutrophils Percent Auto 71.1 % (50-75); Platelet Count 298 X10^3/uL (150-400); Red Blood Cell Count 4.61 X10^6/uL (4.5-5.9); Red Cell Distribution Width 12.6 % (11.6-14.8); White Blood Cell Count 7.9 X10^3/uL (4.5-11.0)
[2024-10-11 10:03] LABS: BUN Creatinine Ratio 19.7 (6-22); Blood Urea Nitrogen 15 mg/dL (9-20); Calcium 9.6 mg/dL (8.4-10.2); Carbon Dioxide 24 mmol/L (22-32); Chloride 102 mmol/L (98-107); Estimated Glomerular Filt Rate > 60 mL/min (>60); Glucose 124 mg/dL (80-110); HEMOLYSIS < 15 (0-50); Potassium 4.3 mmol/L (3.4-5.1); Sodium 136 mmol/L (137-145)
[2024-10-11 10:24] VITALS: PULSE 80
[2024-10-11 10:30] VITALS: BP 147/86; PULSE 85; O2SAT 98
[2024-10-11 11:00] VITALS: BP 132/73; PULSE 76; O2SAT 97
[2024-10-11 11:30] VITALS: BP 143/77; PULSE 74; O2SAT 98
[2024-10-11] MEDS: KETOROLAC 30 MG/ML VIAL IV (11:40)
[2024-10-11] MEDS: methylPREDNISolone 125 MG/2 ML VIAL IV (11:40)
--- NOTE | 2024-10-11 11:50 | PC.NURSE ---
Bilateral hand swelling and wrist pain. pain to head, neck, hips, legs. Pt states he was walking when he tripped and hit his head on a cart he was pushing after the handles broke off. Pt denies LOC. Denies blood thinners. Pt states he has been taking ibuprofen and tyelonal around the clock with no relief. Pt states he is unable to lift his arms very high or bend his elbows well.
[2024-10-11 12:28] VITALS: RESP 16
== END 2024-10-11 12:28 | disposition home or self-care (01) ==
PROVIDERS: Emergency Provider Emergency Medicine; Family Provider Family Medicine; PCP Nurse Practitioner
DX: S16.1XXA Strain of muscle, fascia and tendon at neck level, initial encounter (principal); M54.12 Radiculopathy, cervical region; S09.90XA Unspecified injury of head, initial encounter; M25.532 Pain in left wrist; M25.531 Pain in right wrist; W18.30XA Fall on same level, unspecified, initial encounter
CPT/HCPCS: 72141; 73110; 80048; 85025; 96374; 96375; 99283; 99284; J1171; J1885; J2919

== ENCOUNTER 2024-10-22 16:52 | Emergency (ER) | payer OTHER, SELFPAY ==
[2019-04-29 01:26] VITALS: BMI 33.6
[2024-10-22] VITALS (9 sets, daily range): BP systolic 120–163; BP diastolic 60–76; PULSE 77–114; RESP 12–22; TEMP 36.8; O2SAT 93–98; BMI 29.8
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
[2024-10-22] MEDS: HYDROMORPHONE 1 MG INJ IM (20:09)
--- NOTE | 2024-10-22 21:21 | PC.NURSE ---
Pt ambulatory to restroom without assistance. States still a lot of pain with movement.
[2024-10-22] MEDS: predniSONE 20 MG TABLET 40 MG PO (21:51)
== END 2024-10-22 22:02 | disposition home or self-care (01) ==
PROVIDERS: Emergency Provider Emergency Medicine; PCP Nurse Practitioner
DX: S16.1XXA Strain of muscle, fascia and tendon at neck level, initial encounter (principal); W18.30XA Fall on same level, unspecified, initial encounter; Y99.0 Civilian activity done for income or pay
CPT/HCPCS: 96372; 99283; J1171

== ENCOUNTER → 2025-04-01 14:46 | Outpatient (CLI) | payer OTHER, SELFPAY ==
[2019-04-29 01:26] VITALS: BMI 33.6
== END ==
LOC: PHYS 14:47
PROVIDERS: Family Provider Preventive Medicine Public Health & General Preventive Medicine; PCP Preventive Medicine Public Health & General Preventive Medicine; Referring Provider Orthopaedic Surgery; Visit Provider Orthopaedic Surgery
DX: G56.02 Carpal tunnel syndrome, left upper limb (principal); G56.01 Carpal tunnel syndrome, right upper limb
CPT/HCPCS: 95886; 95911